=== PATIENT | male | born 1940 | race Caucasian/White ===

== ENCOUNTER 2016-08-26 08:50 | Emergency (ER) | payer OTHER ==
[~2016-08-26] VITALS: Ht 175.3 cm; Wt 101.7 kg
[~2016-08-26 08:50] MED LIST: ASPEC81 PO; AVP150 PO; CLOP1TAB15 PO; DIGO0.2518 PO; GLC500 PO; METO50TA16 PO; NMN10 PO; OXYC-57 PO; PANT40TA PO
[2016-08-26 09:00] VITALS: TEMP 36.4; Ht 175.3 cm; Wt 101.7 kg
[2016-08-26] MEDS ORDERED: CEFTRIAXONE SOD INJ 1 GM ADDVIAL IV STA (09:29)
[2016-08-26] MEDS ORDERED: SODIUM CHLORIDE 0.9% 1000ML 1,000 ML IV STA (09:29)
[2016-08-26] MEDS ORDERED: SODIUM CHLORIDE 0.9% 1000ML 250 ML IV STA (09:29)
[2016-08-26 10:07] LABS: BASO % 0.2 %; BASO ABS # 0.01 K/uL (0-0.2); COMPLETE YES; EOS % 2.4 %; HEMATOCRIT 35.4 % (42-52); LYMPH ABS # 0.94 K/uL (1.2-3.4); MEAN CELL VOLUME 88.5 fL (80-100); MEAN CORPUSCULAR HEMOGLOBIN 29.8 pg (25-34); MEAN CORPUSCULAR HGB CONC 33.6 g/dl (32-36); MEAN PLATELET VOLUME 11.7 fL (7.4-10.4); MONO % 17.8 %; NEUT % 60.6 %; PLATELET COUNT 154 K/uL (130-400); WHITE BLOOD COUNT 4.94 K/uL (4.8-10.8)
--- NOTE | 2016-08-26 10:10 | DIAGNOSTIC IMAGING REPORT ---
RIGHT TIBIA/FIBULA 2 VIEWS ROUTINE CLINICAL HISTORY: RIGHT [place] PAIN/SWELLING Right pain. Edema. COMPARISON: None. DISCUSSION: The bones and joint spaces appear intact. There is no evidence of fracture, dislocation or bony disease. Generalized soft tissue edema. IMPRESSION: Soft tissue edema. No acute bony abnormality. Electronically signed by: Kelvin Huitron M.D. 08/26/2016 10:09 AM Dictated Date/Time: 08/26/2016 10:08 AM
[2016-08-26] MEDS ORDERED: ASPI81TA28 PO (10:11)
[2016-08-26] MEDS ORDERED: NTRGSL/4 UT (10:13)
[2016-08-26] MEDS ORDERED: CRS/10 PO (10:14)
[2016-08-26] MEDS ORDERED: LOSA1TAB38 PO (10:15)
[2016-08-26] MEDS ORDERED: METO100T14 PO (10:16)
[2016-08-26] MEDS ORDERED: METF-384 PO (10:17)
[2016-08-26] MEDS ORDERED: ZNTT/150 PO (10:18)
[2016-08-26] MEDS ORDERED: CEPH500C2 PO (10:21)
[2016-08-26 10:23] LABS: BUN/CREATININE RATIO 17.3 (10-20); C-REACTIVE PROTEIN 6.51 mg/dl (0-0.29); CALCIUM 9.6 mg/dl (8.5-10.1); CREATININE 1.2 mg/dl (0.60-1.40); POTASSIUM 4.6 mmol/L (3.5-5.1)
[2016-08-26] MEDS ORDERED: SULF800T23 PO (10:23)
[2016-08-26 11:39] LABS: LYME DISEASE AB IGG NEG (NEG)
[2016-08-26 11:47] LABS: LYME DISEASE AB IGM POS (NEG)
[2016-08-26] MEDS ORDERED: DOXY100C2 PO (12:40)
[2016-08-26] MEDS ORDERED: CEPH500C PO (12:46)
--- NOTE | 2016-08-26 12:47 | EMERGENCY ROOM VISIT NOTE ---
History Report prepared by Addis: Eder Hanson Under the Supervision of: Dr. Yves Hughes M.D. First contact with patient: 09:15 Chief Complaint: INFECTION Stated Complaint: RED SPOT ON RT/PAIN ALSO Nursing Triage Summary: red spot on right leg went to [facility] told if got worse to see a dr . came here increased in size originally went for fever. 1.5 weeks ago had heart cath in [place]. History of Present Illness The patient is a 76 year old male who presents to the Emergency Room with complaints of a worsening right centeno infection beginning four days ago. He was seen in the [facility] three days ago and was started on antibiotics. He had a fever at the time, but states that he has not had any fevers since. The patient denies feeling sick. He notes that he had a cardiac catheterization 1.5 weeks ago. He is on Plavix and aspirin. The patient denies any joint aches or groin pain. 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 Source of History: patient, family Onset: Four days ago Position: leg (right centeno) Quality: other (infection) Timing: worsening Note: The patient denies any joint pain, or groin pain. Review of Systems See HPI for pertinent positives & negatives. A total of 10 systems reviewed and were otherwise negative. Past Medical & Surgical Medical Problems: (1) Borderline diabetes Old medical records were reviewed. Nurse's notes were reviewed and I agree with. Family History No pertinent family history stated. Social History Smoking Status: Never Smoker Occupation Status: retired Current/Historical Medications Scheduled Aspirin (Aspirin Ec), 81 MG PO DAILY Cephalexin Monohydrate (Keflex), 500 MG PO DAILY Cephalexin Monohydrate (Keflex), 500 MG PO QID Clopidogrel (Plavix), 75 MG PO QAM Doxycycline Hyclate (Vibramycin), 100 MG PO BID Losartan Potassium (Cozaar), 100 MG PO DAILY Metformin Hcl (Glucophage), 1,000 MG PO BID Metoprolol Tartrate (Lopressor) (Lopressor), 100 MG PO BID Nitroglycerin (Nitrostat), 0.4 MG UT PRN Ranitidine (Zantac), 150 MG PO BID Rosuvastatin Calcium (Crestor), 10 MG PO DAILY Sulfa/Trimethoprim (Bactrim Ds 800MG/160MG), 1 TAB PO BID Allergies Coded Allergies: No Known Allergies (Verified , 08/26/16) Physical Exam Vital Signs Date Time Temp Pulse Resp B/P (MAP) Pulse Ox O2 Delivery O2 Flow Rate FiO2 08/26/16 13:00 59 17 113/58 98 08/26/16 10:12 53 16 127/79 97 Room Air 08/26/16 09:00 36.4 55 18 139/78 98 Room Air Physical Exam General: Non ill appearing older male in no acute distress. HEENT: Normal cephalic atraumatic. Pupils are equal round and reactive to light. Extraocular movements are intact. Oropharynx is pink with moist mucous membranes. No swelling of the mouth lips or tongue. Neck: Supple with a midline trachea. No meningeal signs or stiffness, no JVD or bruits. No Stridor. Chest: Clear to auscultation bilaterally. No wheezes or rhonchi. No increased work of breathing. Heart: regular rate and rhythm. Abdomen: Soft nontender, nondistended without rebound guarding or rigidity. Extremities: No cyanosis clubbing or edema. No calf assymetry. Red circular rash on the right centeno. No blanching. There is some central clearing. No crepitus Normal motor and sensation. No groin tenderness or lymphadenopathy. No lymphangitis. Spine/Back. Non tender to palpation. No CVA tenderness Skin: Good turgor without rashes. Neurologic exam: Cranial nerves two through 12 are intact. Motor and sensation are intact and symmetrical throughout. Medical Decision & Procedures ER Provider Diagnostic Interpretation: X-ray results as stated below per interpretation by me and the radiologist: RIGHT TIBIA/FIBULA 2 VIEWS ROUTINE DISCUSSION: The bones and joint spaces appear intact. There is no evidence of fracture, dislocation or bony disease. Generalized soft tissue edema. IMPRESSION: Soft tissue edema. No acute bony abnormality. Electronically signed by: Kelvin Huitron M.D. 08/26/2016 10:09 AM Laboratory Results 08/26/16 09:50 Red Blood Count 4.00, Mean Corpuscular Volume 88.5, Mean Corpuscular Hemoglobin 29.8, Mean Corpuscular Hemoglobin Concent 33.6, Mean Platelet Volume 11.7, Neutrophils (%) (Auto) 60.6, Lymphocytes (%) (Auto) 19.0, Monocytes (%) (Auto) 17.8, Eosinophils (%) (Auto) 2.4, Basophils (%) (Auto) 0.2, Neutrophils # (Auto ) 2.99, Lymphocytes # (Auto) 0.94, Monocytes # (Auto) 0.88, Eosinophils # (Auto ) 0.12, Basophils # (Auto) 0.01 08/26/16 09:50 Test 08/26/16 09:50 08/26/16 09:53 White Blood Count 4.94 K/uL (4.8-10.8) Red Blood Count 4.00 M/uL (4.7-6.1) Hemoglobin 11.9 g/dL (14.0-18.0) Hematocrit 35.4 % (42-52) Mean Corpuscular Volume 88.5 fL (80-100) Mean Corpuscular Hemoglobin 29.8 pg (25-34) Mean Corpuscular Hemoglobin Concent 33.6 g/dl (32-36) Platelet Count 154 K/uL (130-400) Mean Platelet Volume 11.7 fL (7.4-10.4) Neutrophils (%) (Auto) 60.6 % Lymphocytes (%) (Auto) 19.0 % Monocytes (%) (Auto) 17.8 % Eosinophils (%) (Auto) 2.4 % Basophils (%) (Auto) 0.2 % Neutrophils # (Auto) 2.99 K/uL (1.4-6.5) Lymphocytes # (Auto) 0.94 K/uL (1.2-3.4) Monocytes # (Auto) 0.88 K/uL (0.11-0.59) Eosinophils # (Auto) 0.12 K/uL (0-0.5) Basophils # (Auto) 0.01 K/uL (0-0.2) RDW Standard Deviation 42.7 fL (36.4-46.3) RDW Coefficient of Variation 13.1 % (11.5-14.5) Immature Granulocyte % (Auto) 0.0 % Immature Granulocyte # (Auto) 0.00 K/uL (0.00-0.02) Erythrocyte Sedimentation Rate 39 mm/hr (0-14) Anion Gap 6.0 mmol/L (3-11) Est Creatinine Clear Calc Drug Dose 60.6 ml/min Estimated GFR () 67.2 Estimated GFR (Non- 58.0 BUN/Creatinine Ratio 17.3 (10-20) Calcium Level 9.6 mg/dl (8.5-10.1) C-Reactive Protein 6.51 mg/dl (0-0.29) Lyme Disease IgG Antibody NEG (NEG) Bedside Lactic Acid Venous 1.27 mmol/L (0.90-1.70) Laboratory studies as stated above per my review. Medications Administered Medications (Trade) Dose Ordered Sig/Malik Route Start Time Stop Time Status Last Admin Dose Admin Sodium Chloride 250 ml @ 999 mls/hr Q16M STAT IV 08/26/16 09:29 08/26/16 09:44 DC 08/26/16 09:29 999 MLS/HR Sodium Chloride 1,000 ml @ 100 mls/hr Q10H STAT IV 08/26/16 09:29 08/26/16 13:18 DC 08/26/16 09:29 100 MLS/HR Ceftriaxone Sodium (Rocephin Inj) 1 gm NOW STAT IV 08/26/16 09:29 08/26/16 09:32 DC 08/26/16 10:09 1 GM ED Course 0916: Past medical records reviewed. The patient was evaluated in room A12B, and a complete history and physical examination were performed. 0929: Ordered Rocephin Inj 1 gm IV, Sodium Chloride 1000 ml @ 100 mls/hr IV, Sodium Chloride 250 ml @ 999 mls/hr IV. 1205: I reassessed the patient. He feels better. 1240: Upon reevaluation, the patient is resting comfortably. I discussed the results and treatment plan with him. He verbalized agreement of the treatment plan. He states that he was told to take Keflex once a day, I told him that he should increase that to four times a day. The patient was discharged home. Medical Decision Differentials include, but are not limited to; cellulitis, lyme disease, trauma , inflammation, and electrolyte or metabolic abnormality. Blood Pressure Screening: Patient was found to have a slightly elevated blood pressure due to circumstances. I do not believe that the patient requires hypertension monitoring. Medication Reconciliation: I attest that I have personally reviewed the patient' s current medication list. This patient comes in with a red circular area centeno. He was placed on Keflex an Bactrim EKG has redness in the centeno he has no systemic complaints. He may have had a fever 2 days ago. He looks well on exam. He is out in the yard a lot and this could be related Lyme or erythema migrans potentially although it is somewhat atypical. His Lyme titer did come back positive for IgM. He was given Rocephin 1 g IV. His white count is not elevated his sedimentation rate and CRP are elevated. He has no significant electrolyte or metabolic abnormalities. he feels good and like to go home x-ray was unremarkable. I have reviewed his antibiotics as well as his medications. His Keflex is only 1 time a day. This is certainly suboptimal for cellulitis and I will have him use Keflex 500 mg 4 times a day. Additionally will have him stop the Bactrim and I'll have him use doxycycline to cover the Lyme disease. With this combination should cover both Lyme and cellulitis/skin infection. I do not think he needs to be admitted at this point however, I encouraged him follow-up with his doctor on Friday for recheck. Return if : increasing redness or warmth, fever or chills, worsening of symptoms, any new problems or concerns. He was happy with the plan and discharged home. Impression Primary Impression: Cellulitis Additional Impressions: Lyme disease Rash Scribe Attestation The scribe's documentation has been prepared under my direction and personally reviewed by me in its entirety. I confirm that the note above accurately reflects all work, treatment, procedures, and medical decision making performed by me. Departure Information Dispostion Home / Self-Care Prescriptions Cephalexin Monohydrate (Keflex) 500 Mg Cap 500 MG PO QID for 7 Days, #28 CAP Prov: Yves Hughes M.D. 08/26/16 Doxycycline Hyclate (VIBRAMYCIN) 100 Mg Cap 100 MG PO BID for 21 Days, #42 CAP Prov: Yves Hughes M.D. 08/26/16 Referrals Rafael Abarca M.D. (PCP) Forms HOME CARE DOCUMENTATION FORM, IMPORTANT VISIT INFORMATION, WORK / SCHOOL INSTRUCTIONS Patient Instructions My [facility] Additional Instructions Rest. Continue to use the cephalexin/Keflex Use doxycycline 100 mg twice a day for 21 daysantibiotic. This replaces the Bactrim/sulfamethoxazole Doxycycline can make you very sensitive the sunlight so ensure that she use extra some blocking coverup Return if: Fever or chills, worsening of symptoms, increasing redness or red streaks going up the leg, not feeling well, any new problems or concerns. Follow up with your doctor on Friday for recheck or return here in the meantime if not better weekend Problem Qualifiers
[2016-08-26 13:00] VITALS: BP 113/58; PULSE 59; O2SAT 98
[2016-08-29 08:33] LABS: 18KDIGG BAND NONREACTIVE (NONREACTIVE); 23KDIGG BAND REACTIVE (NONREACTIVE); 23KDIGM BAND REACTIVE (NONREACTIVE); 28KDIGG BAND NONREACTIVE (NONREACTIVE); 30KDIGG BAND REACTIVE (NONREACTIVE); 39KDIGG BAND NONREACTIVE (NONREACTIVE); 39KDIGM BAND NONREACTIVE (NONREACTIVE); 41KDIGG BAND NONREACTIVE (NONREACTIVE); 41KDIGM BAND REACTIVE (NONREACTIVE); 45KDIGG BAND NONREACTIVE (NONREACTIVE); 58KDIGG BAND NONREACTIVE (NONREACTIVE); 66KDIGG BAND REACTIVE (NONREACTIVE); 93KDIGG BAND NONREACTIVE (NONREACTIVE)
== END 2016-08-26 13:05 | disposition home or self-care (01) ==
LOC: C.EDB 08:52 → C.EDA 13:05
DX: L03.90 Cellulitis, unspecified (principal); A69.20 Lyme disease, unspecified; R21 Rash and other nonspecific skin eruption; Z79.82 Long term (current) use of aspirin; R73.03 Prediabetes

== ENCOUNTER 2020-05-10 08:11 | Inpatient (IN) ==
--- NOTE | 2020-04-21 14:19 | PAT Medication Instructions ---
Medication Instructions Date of Service April 21, 2020 Home Medications Multivitamin 50 Plus 2 tab PO QAM aspirin 81 mg PO QAM clopidogrel 75 mg PO QAM hydroxychloroquine [Plaquenil] 200 mg PO BID losartan 100 mg PO QAM metformin 1,000 mg PO BID metoprolol tartrate 100 mg PO BID nitroglycerin [Nitrostat] 0.4 mg SUBLINGUAL UD PRN omeprazole [Prilosec] 20 mg PO QAM rosuvastatin 10 mg PO HS Continue as directed nitroglycerin [Nitrostat] 0.4 mg SUBLINGUAL UD PRN (if needed) ASK your prescriber and surgeon aspirin 81 mg PO QAM clopidogrel 75 mg PO QAM STOP taking 2 weeks before surgery (or as soon as possible if surgery is within 2 weeks) Multivitamin 50 Plus 2 tab PO QAM DO NOT take the morning of surgery losartan 100 mg PO QAM metformin 1,000 mg PO BID Take morning of surgery With a small sip of water, OTHERWISE NOTHING TO EAT OR DRINK AFTER MIDNIGHT: metoprolol tartrate 100 mg PO BID omeprazole [Prilosec] 20 mg PO QAM Take evening before surgery metformin 1,000 mg PO BID metoprolol tartrate 100 mg PO BID rosuvastatin 10 mg PO HS Other Notes If you have any questions please call us at [phone] or [phone] or [phone] or [phone]
--- NOTE | 2020-04-25 15:25 | Anesthesiology Consultation ---
Date of Service April 25, 2020 Assessment & Plan (1) Encounter for pre-operative examination: - Per assessment on 04/25: Travel screen negative. Uses PPE. No known COVID-19 positive contacts or current COVID-19 related symptoms. Received first COVID vac cine 03/31 (second vaccine scheduled 04/28). Surgeon arranging preop COVID testing. Awaiting results. - S/P Right shoulder arthroscopy, RCR (03/25/18): LMA#5 easily placed + PNB at [facility] - ASA/plavix instructions: per surgeon/prescriber - Check BSG AM DOS Chart Review Chart Review: Acceptable Risk for Surgery (pending most recent cardiology office visit note) and Patient seen in Pre Admission Testing Teaching & Discussion Pre-Anesthesia Teaching/Discussion Notes: Instructed NPO after midnight before surgery,except medications with 15 cc of water. Medication instructions provided according to the PAT guidelines. History Surgery Operation Date: 05/10/20 12:25 Proposed Procedures p L4-L5 Decompression Fusion, Possible L5-S1, Spinal Cord Monitoring - Arash Burton DO Height/Weight Height: 5 ft 9 in Weight: 101.7 kg Allergies Allergy/AdvReac Type Severity Reaction Status Date / Time No Known Allergies Allergy Unknown Verified 04/18/20 10:21 Medications Home Medications Medication Instructions Recorded Confirmed Last Taken Multivitamin 50 Plus 2 tab PO QAM 03/13/18 04/18/20 03/24/18 08:30 aspirin 81 mg PO QAM 03/13/18 04/18/20 03/24/18 08:30 clopidogrel 75 mg PO QAM 03/13/18 04/18/20 03/22/18 08:30 hydroxychloroquine [Plaquenil] 200 mg PO BID 03/13/18 04/18/20 03/24/18 20:00 losartan 100 mg PO QAM 03/13/18 04/18/20 03/24/18 08:30 metformin 1,000 mg PO BID 03/13/18 04/18/20 03/23/18 18:00 metoprolol tartrate 100 mg PO BID 03/13/18 04/18/20 03/24/18 20:30 nitroglycerin [Nitrostat] 0.4 mg SUBLINGUAL UD PRN 04/18/20 04/18/20 Unknown omeprazole [Prilosec] 20 mg PO QAM 04/18/20 04/18/20 Unknown rosuvastatin 10 mg PO HS 04/18/20 04/18/20 Unknown Pepcid 1 tab PO DAILY 04/25/20 04/25/20 Unknown Past Medical History Medical History (Updated 04/25/20 @ 15:31 by Yolande Manzo) Anemia chronic, no hx blood transfusion CAD (coronary artery disease) stents x2 (~2009, ~2012), follows with Dr. Jeffries Chronic back pain Degenerative disc disease Diabetes mellitus, type 2 NIDDM ("borderline") GERD (gastroesophageal reflux disease) controlled [place] (hard of hearing) Left ear hearing aid Hyperlipidemia Hypertension Leg weakness Lyme disease 2017 (treated with 21 day course of doxycycline) Obesity Osteoarthritis Sleep apnea CPAP (s/p UPPP) Exercise / Class Metabolic Activity III < 4 Walking/Shop/Light housework Past Family History Family History Unknown Hypertension Other No family history of adverse response to anesthesia Past Surgical History Surgical History History of ankle surgery Left History of cardiac cath ~2009 (stent x1), ~2012 (stent x1), 2017 (no stents) History of cataract surgery R/L History of repair of rotator cuff Right shoulder arthroscopy, RCR: 03/25/18: LMA#5 easily placed + PNB at [facility] History of uvulopalatopharyngoplasty Hx of colonoscopy Hx of tonsillectomy S/P epidural steroid injection S/P laminectomy Past Anesthesia History No Hx of Anesthesia Complications and No Family Hx of Anesthesia Complications History of PONV No Hx of PONV and No Hx of Motion Sickness Social History Smoking Status: Never smoker Do You Dip or Chew Tobacco: No Hx Alcohol Use: No Hx Substance Use: No substance use type: does not use Review of Systems Patient denies chest pain, shortness of breath, dyspnea on exertion, joint pain, reflux, cough, wheezing, palpitations. Physical Exam Vital Signs VITALS BP 153/88 P 66 TEMP 98.4 SP02 98%RA RESP 16 PHYSICAL Full neck and c-spine range of motion. Full TMJ range of motion. TMD 3 finger breaths Mallampati Score 1 Dentition: intact Lungs: clear throughout to auscultation Cardiac: regular rate and rhythm, no murmurs noted Spine: normal Carotid arteries: negative bruit Extremities: no edema Testing Laboratory Results PT 10.3 Seconds (9.0-12.0) 04/25/20 15:40 INR 1.0 (0.9-1.1) 04/25/20 15:40 APTT 25.1 Seconds (21.0-31.0) 04/25/20 15:40 Urine Color Yellow 04/25/20 Unknown Urine Appearance Clear (Clear) 04/25/20 Unknown Urine pH 6.0 (4.5-7.5) 04/25/20 Unknown Ur Specific [place] 1.014 (1.000-1.030) 04/25/20 Unknown Urine Protein Negative (Negative) 04/25/20 Unknown Urine Glucose (UA) Negative (Negative) 04/25/20 Unknown Urine Ketones Negative (Negative) 04/25/20 Unknown Urine Nitrite Negative (Negative) 04/25/20 Unknown Ur Leukocyte Esterase Negative (Negative) 04/25/20 Unknown Urine WBC (Auto) 0 /hpf (0-5) 04/25/20 Unknown Urine RBC (Auto) 0-4 /hpf (0-4) 04/25/20 Unknown U Hyaline Cast (Auto) 0 /lpf (0-5) 04/25/20 Unknown U Epithel Cells (Auto) 0-5 /lpf (0-5) 04/25/20 Unknown Urine Bacteria (Auto) Negative (Negative) 04/25/20 Unknown Blood Type A Positive 04/25/20 15:40 Antibody Screen NEGATIVE 04/25/20 15:40 04/17/20 WBC 5.01 H/H 12.4/37.8 PLATELETS 198 SODIUM 141 POTASSIUM 4.4 CHLORIDE 109 CO2 26 BUN 16 CREATININE 0.82 GLUCOSE 160 TSH 3.060 FREE T4 0.98 HGBA1C 7.0% Electrocardiogram Date: 04/25/20 SR with PSVC's at 66bpm. Otherwise normal ECG. Chest X-Ray Date: 04/25/20 FINDINGS: Cardiac silhouette is mildly enlarged. Coronary arterial stent. Chronic right hemidiaphragmatic elevation. No pneumothorax, pleural effusion, airspace consolidation or overt pulmonary edema. Chronic blunting of the posterior costophrenic angles is likely secondary to scarring/atelectasis. Degenerative changes of the shoulders and spine. IMPRESSION: No acute process. Echocardiogram Date: 08/31/17 EF: 55-60% LV Function: normal Other Findings: + LVH (Mild) Dilatation of the left atrium. Sclerotic changes involving both the aortic and mitral valve leaflets, as well as mitral annular calcification. Mild to at most moderate mitral valvular insufficiency. Mild tricuspid, aortic, and pulmonic valvular insufficiency. Stress Test Date: 07/30/16 Type: nuclear (Lexiscan) Findings: + ischemia Resting EF: 58% Resting LV Function: normal Abnormal myocardial perfusion SPECT images with evidence for pharmacologically induced lateral ischemia. Normal LV wall motion and thickening. (Patient underwent cardiac cath on 08/16/16 and required no intervention) Cardiac Catheterization Date: 08/16/16 Intervention: + none Patent left circumflex stent with 20% in-stent restenosis and proximal edge 40% stenosis. LAD had a mid eccentric area of 50% stenosis after the takeoff of diagonal branch. Moderate nonobstructive coronary artery disease. Normal left ventricular systolic function.
[2020-04-25 16:26] LABS: Partial Thromboplastin Time 25.1 Seconds (21.0-31.0); Prothrombin Time 10.3 Seconds (9.0-12.0)
[2020-04-25 16:44] LABS: Appearance Urine Clear (Clear); Bacteria Urine Automated Negative (Negative); Bilirubin Urine Negative (Negative); Blood Urine Trace (Negative); Cast Urine Automated 0 /lpf (0-5); Color Urine Yellow; Epithelial Cell Urine Auto 0-5 /lpf (0-5); Glucose Urine UA Negative (Negative); Ketones Urine Negative (Negative); Leukocyte Esterase Urine Negative (Negative); Nitrite Urine Negative (Negative); Protein Urine Negative (Negative); RBC Urine Automated 0-4 /hpf (0-4); Specific Gravity Urine 1.014 (1.000-1.030); Urobilinogen Urine Negative (Negative); WBC Urine Automated 0 /hpf (0-5)
--- NOTE | 2020-04-25 17:06 | XRay Report ---
XR chest Pre-admission PA/Lat HISTORY: 80 years-old Male pat preoperative exam. No acute chest complaints COMPARISON: Chest radiograph 03/20/2018 TECHNIQUE: PA and lateral views of the chest FINDINGS: Cardiac silhouette is mildly enlarged. Coronary arterial stent. Chronic right hemidiaphragmatic eleva tion. No pneumothorax, pleural effusion, airspace consolidation or overt pulmonary edema. Chronic jovita nting of the posterior costophrenic angles is likely secondary to scarring/atelectasis. Degenerative changes of the shoulders and spine. IMPRESSION: No acute process. ACT 112: Negative or not required by law. The above report was generated using voice recognition software. It may contain grammatical, syntax o r spelling errors. Electronically signed by: Shashank Pak M.D. 04/25/2020 5:04 PM
--- NOTE | 2020-04-25 17:09 | Electrocardiogram Report ---
Test Reason : Blood Pressure : / mmHG Vent. Rate : 066 BPM Atrial Rate : 066 BPM P-R Int : 168 ms QRS Dur : 096 ms QT Int : 434 ms P-R-T Axes : 033 -24 036 degrees QTc Int : 454 ms Sinus rhythm with Premature supraventricular complexes Otherwise normal ECG When compared with ECG of 20-MAR-2018 10:47, Premature supraventricular complexes are now Present Confirmed by Branden Tesfaye ([id number]) on 04/25/2020 5:08:34 PM Referred By: Arash Burton Confirmed By:Branden Tesfaye
[~2020-05-10 08:11] MED LIST changes: +ACETAMINOPHEN 500 MG TAB PO SCH; -ASPEC81 PO; -AVP150 PO; -CLOP1TAB15 PO; +CeleBREX 200 MG CAP PO SCH; -DIGO0.2518 PO; +GABAPENTIN 300 MG CAP PO SCH; -GLC500 PO; +LR 15ML/HR IV SCH; -METO50TA16 PO; -NMN10 PO; -OXYC-57 PO; -PANT40TA PO; +ceFAZolin 2000MG 2,000 MG/15 ML SYR IV SCH
[2020-05-10] MEDS ORDERED: LIDOCAINE HCL 2% 2 ML VIAL/AMP(20MG/ML) INFIL ONE (08:26)
[2020-05-10] MEDS ORDERED: ONDANSETRON INJ 2 MG/ML 2 ML VIAL ONE (08:26)
[2020-05-10] MEDS ORDERED: PROPOFOL IV EMULSION 10 MG/ML 20 ML VIAL IV ONE (08:26)
[2020-05-10] MEDS ORDERED: DEXAMETHASONE SOD INJ 4 MG/ML VIAL ONE (08:26)
[2020-05-10] MEDS ORDERED: ROCURONIUM BROMIDE 10 MG/ML 5 ML VIAL IV ONE ×2 (08:26→13:26)
[2020-05-10] MEDS ORDERED: fentaNYL citrate 100 MCG/2 ML VIAL ONE ×2 (08:27)
--- NOTE | 2020-05-10 09:30 | History & Physical Bridge Note ---
Date of Service May 10, 2020 History & Physical Bridge Note I have examined the patient, reviewed the History & Physical and in the interval since the performance of the History & Physical I have noted the following changes of clinical significance: no changes noted
--- NOTE | 2020-05-10 09:31 | History & Physical Report ---
Date of Service May 10, 2020 Assessment & Plan (1) Neurogenic claudication due to lumbar spinal stenosis: Admission and Anticipated Discharge Date Admission Date: L4-L5 decompression and fusion, possible L5-S1 History of Present Illness Chief Complaint: Back and bilateral leg pain Primary Care Provider: Rafael Abarca This is a 80-year-old male well-known to me the presents marked decline in status complaining of back and bilateral leg pain and weakness. He is here for surgical invention. Allergies Allergy/AdvReac Type Severity Reaction Status Date / Time No Known Allergies Allergy Unknown Verified 05/10/20 08:53 Home Medications Medication Instructions Recorded Confirmed Type Multivitamin 50 Plus 2 tab PO QAM 03/13/18 05/10/20 History aspirin 81 mg PO QAM 03/13/18 05/10/20 History clopidogrel 75 mg PO QAM 03/13/18 05/10/20 History hydroxychloroquine [Plaquenil] 200 mg PO BID 03/13/18 05/10/20 History losartan 100 mg PO QAM 03/13/18 05/10/20 History metformin 1,000 mg PO BID 03/13/18 05/10/20 History metoprolol tartrate 100 mg PO BID 03/13/18 05/10/20 History nitroglycerin [Nitrostat] 0.4 mg SUBLINGUAL UD PRN 04/18/20 05/10/20 History omeprazole [Prilosec] 20 mg PO QAM 04/18/20 05/10/20 History rosuvastatin 10 mg PO HS 04/18/20 05/10/20 History Pepcid 1 tab PO DAILY 04/25/20 05/10/20 History Past Med/Surg History Medical History (Updated 05/10/20 @ 09:31 by Arash Burton DO) Anemia chronic, no hx blood transfusion CAD (coronary artery disease) stents x2 (~2009, ~2012), follows with Dr. Jeffries Chronic back pain Degenerative disc disease Diabetes mellitus, type 2 NIDDM ("borderline") GERD (gastroesophageal reflux disease) controlled [place] (hard of hearing) Left ear hearing aid Hyperlipidemia Hypertension Leg weakness Lyme disease 2017 (treated with 21 day course of doxycycline) Obesity Osteoarthritis Sleep apnea CPAP (s/p UPPP) Surgical History History of ankle surgery Left History of cardiac cath ~2009 (stent x1), ~2012 (stent x1), 2017 (no stents) History of cataract surgery R/L History of repair of rotator cuff Right shoulder arthroscopy, RCR: 03/25/18: LMA#5 easily placed + PNB at [facility] History of uvulopalatopharyngoplasty Hx of colonoscopy Hx of tonsillectomy S/P epidural steroid injection S/P laminectomy Family History Unknown Hypertension Other No family history of adverse response to anesthesia Social History Smoking Status: Never smoker Second Hand Exposure: Yes (hx); Do You Dip or Chew Tobacco: No; Tobacco Cessation Education Requested by Patient: No Hx Alcohol Use: No Hx Substance Use: No Preferred Language: [place]ar[place] Communication Ability: Effective 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
[2020-05-10] MEDS ORDERED: BUPIVACAINE/EPINEPHRINE 0.5% MPF 1:200,000 30 ML VIAL ONE (09:43)
[2020-05-10] MEDS ORDERED: BACITRACIN INJ 50,000 UNIT VIAL ONE (09:44)
[2020-05-10] MEDS ORDERED: HYDROmorphone INJ 2 MG/ML SYR/VIAL IV PRN (09:47)
[2020-05-10] MEDS ORDERED: ePHEDrine sulfate 50 MG/ML AMP IV PRN (09:47)
[2020-05-10] MEDS ORDERED: ONDANSETRON INJ 2 MG/ML 2 ML VIAL IV PRN ×2 (09:47→13:46)
[2020-05-10] MEDS ORDERED: ATROPINE SULFATE 0.1 MG/ML 10ML SYR IV PRN (09:47)
[2020-05-10] MEDS ORDERED: ePHEDrine sulfate 50 MG/ML SYR ONE (10:51)
[2020-05-10] MEDS ORDERED: GLYCOPYRROLATE 0.2 MG/ML VIAL ONE (11:51)
[2020-05-10] MEDS ORDERED: NEOSTIGMINE METHYLSULFATE 1 MG/ML 10ML VIAL ONE (11:51)
[2020-05-10] MEDS ORDERED: FLOSEAL HEMOSTATIC MATRIX 10ML TOP ONE (12:16)
--- NOTE | 2020-05-10 12:16 | Operative Report ---
Post Operative Report Pre & Post Diagnosis Operation Date: 05/10/20 10:05 Pre-Op Diagnosis: Spinal Stenosis, Lumbar Region with Neurogenic Claudication Post-Op Diagnosis: Spinal Stenosis, Lumbar Region with Neurogenic Claudication I identified the patient and participated in the time-out.: Yes Procedure Operation Date: 05/10/20 10:05 Actual Procedures #1 lumbar decompression with bilateral medial facetectomies and foraminotomies L3-4, L4-5 and L5-S1. #2 posterior spinal fusion L4-5 L5-S1. 3 placement posterior instrumentation L4-5 L5-S1. #4 interbody fusion L4-5 L5-S1. #5 placement peek cage 14 x 26 mm at L4-5 and L5-S1. #6 placement locally harvested morselized autograft in the posterior gutters. #7 placement infuse collagen sponge, master graft in the posterior lateral gutters and I factor in the interbody spaces. Surgeon Arash Burton, DO Vending Supervisor Siobhan King Estimated Blood Loss 300 Findings See Below The patient is 5 foot 9 inches tall weighing over 101 kg with a BMI in excess of 32. Patient's body habitus did contribute to significant technical difficulty cutting her deepest retractors and longus instruments in order to perform his procedure. This had at least 50% increase to the operative time. Specimens None Indications This is an 80-year-old male well-known to me the presents with above-mentioned diagnosis after failing course of nonoperative care is here for the above- mentioned procedure. Description of Procedure Patient was met with identified informed consent obtained. Patient patient was then taken to the operative suite underwent a patient placed in a prone position injectable total spine frame. All bony prominences well-padded eyes inspected to ensure no external pressure placed upon up at this point the lumbar spine was prepped and draped in normal sterile fashion. Sharp dissection with the assi stance of Bovie cautery performed down to and exposing the lamina and transverse processes of L4-L5 and sacral ala bilaterally. From a caudal cephalad fashion complete laminectomy of L5 L4 and partial laminectomy of L3 was performed including bilateral medial facetectomies and foraminotomies addressing severe spinal stenosis. Pedicle screws were then placed in L4-L5 and S1 levels bilaterally with assistance of fluoroscopy the purposes duke placed. By way of a transforaminal approach on the left complete discectomy of L5-S1 was performed endplates curetted to subcortical being bone and a 14 x 26 mm peek cage filled with I factor tapped in position. Then proceeded L4-L5 and again by way of a transforaminal portion left complete discectomy was performed endplates curetted to subcortical any bone and a 14 x 26 mm cage filled with I factor tapped in position. The rods were then locked into final position bilaterally. The transverse processes of L4-L5 and sacral ala burred to subcortical bleeding bone. Infuse collagen sponge master graft local autograft placed in the posterior gutters. 15 round GONZALES drain inserted. The incision was then closed with 1 Vicryl the fascia 2-0 Vicryl subcutaneously and 4 Monocryl for final skin closure. Steri-Strip sterile dressings placed. Patient waken taken to PACU stable condition. Please note spinal cord monitoring utilized throughout the pr ocedure no changes noted. Lastly Siobhan King was present at the entire surgery involved the patient positioning complex portions of the surgery and final skin closure. I attest to the content of the Intraoperative Record and any orders documented therein. Any exceptions are noted below.
--- NOTE | 2020-05-10 12:30 | Fluoroscopy Report ---
FL lumbar spine 2-3V CLINICAL HISTORY: L4-L5 DECOMPRESSION AND FUSION POSSIBLE L5-S1 COMPARISON STUDY: None. FLUOROSCOPY TIME: 25 seconds. FLUOROSCOPIC IMAGES: 2 FINDINGS: Fluoroscopy was provided during L4-S1 posterior decompression, multilevel discectomy and bi lateral pedicle screw fusion. The hardware is intact. IMPRESSION: Fluoroscopy provided for L4-S1 posterior decompression, discectomy and bilateral pedicle screw fusion. ACT 112: Negative or not required by law. Electronically signed by: Maxwell Finch M.D. 05/10/2020 12:29 PM
[2020-05-10] MEDS: fentaNYL citrate 100 MCG/2 ML VIAL IV PRN ×2 (12:53→13:00)
--- NOTE | 2020-05-10 13:31 | Anesthesiology Progress Note ---
Date of Service May 10, 2020 Anesthesia Post Procedure Vital Signs Vital Signs: Temp Pulse Pulse Resp BP BP Pulse Ox 05/10/20 13:20 36.3 C L 54 L 12 154/79 H 97 05/10/20 13:10 52 L 12 153/57 H 97 05/10/20 13:00 57 L 14 147/67 H 99 05/10/20 12:50 62 12 138/83 99 05/10/20 12:40 69 18 154/81 H 100 05/10/20 12:33 36.3 C L 71 13 152/74 H 100 05/10/20 08:34 36.6 C 66 20 160/90 H 97 Pain Intensity Medial Back: Pain Intensity: 5 Transfer of Care Handoff Completed per policy Notes Mental Status: alert / awake / arousable and participated in evaluation Patient Amnestic to Procedure: Yes Nausea / Vomiting: adequately controlled Pain: adequately controlled Airway Patency, RR, SpO2: stable & adequate BP & HR: stable & adequate Hydration State: stable & adequate Anesthetic Complications: no major complications apparent and Pt Satisfied with anesthetic care
[2020-05-10] MEDS ORDERED: ACETAMINOPHEN 500 MG TAB PO PRN (13:46)
[2020-05-10] MEDS ORDERED: HYDROmorphone INJ 1 MG/ML SYRINGE IV PRN (13:46)
[2020-05-10] MEDS ORDERED: ACETAMINOPHEN 1,000 MG/100 ML VIAL IV PRN (13:46)
[2020-05-10] MEDS ORDERED: LORazepam 0.5 MG TAB PO PRN (13:46)
[2020-05-10] MEDS ORDERED: hydrOXYzine HCl 25 MG TAB PO PRN (13:46)
[2020-05-10] MEDS ORDERED: DO NOT ADMINISTER FLU VACCINE PRN (13:46)
[2020-05-10] MEDS ORDERED: ONDANSETRON 4 MG OD TAB PO PRN (13:46)
[2020-05-10] MEDS ORDERED: bisacodyL 10 MG SUPP PR PRN (13:46)
[2020-05-10] MEDS ORDERED: FAMOTIDINE 20 MG TAB PO PRN (13:46)
[2020-05-10] MEDS ORDERED: SOD PHOSPHATE/SOD BIPHOSPHATE ENEMA 132 ML BTL PR PRN (13:46)
[2020-05-10] MEDS ORDERED: NALOXONE HCL 0.4 MG/1 ML VIAL/CARP IV PRN (13:46)
[2020-05-10] MEDS ORDERED: diphenhydrAMINE Capsule 25 MG CAP PO PRN (13:46)
[2020-05-10] MEDS ORDERED: HYDROmorphone INJ 0.5 MG/0.5 ML SYR IV PRN (13:46)
[2020-05-10] MEDS ORDERED: oxyCODONE HCL IR 5 MG TAB (IMMEDIATE RELEASE) PO PRN (13:46)
[2020-05-10] MEDS ORDERED: PROMETHAZINE HCL 12.5 MG in SODIUM CHLORIDE 0.9% 50 ML IV PRN (13:46)
[2020-05-10] MEDS ORDERED: MAGNESIUM HYDROXIDE SUSP 30 ML UDC PO PRN (13:46)
[2020-05-10] MEDS ORDERED: ALUMINUM/MAGNESIUM SUSP 30 ML UDC PO PRN (13:46)
[2020-05-10] MEDS ORDERED: DO NOT ADMINISTER PNEUMOCOCCAL VACCINE PRN (13:46)
[2020-05-10] MEDS ORDERED: NITROGLYCERIN SL 0.4 MG/TAB TAB SL PRN (13:46)
[2020-05-10] MEDS ORDERED: METOCLOPRAMIDE HCL INJ 5 MG/ML 2 ML VIAL IV PRN (13:46)
[2020-05-10] MEDS ORDERED: LORazepam 0.5 MG/1 ML VIAL IV PRN (13:46)
[2020-05-10] MEDS: SODIUM CHLORIDE 0.9% 1000ML 1,000 ML IV SCH ×2 (13:58→22:58)
[2020-05-10] MEDS: ceFAZolin 2000MG 2,000 MG/15 ML SYR IV SCH ×2 (14:24→22:58)
[2020-05-10] MEDS ORDERED: PHARMACY GLYCEMIC MGMT CONSULT PRN (14:38)
[2020-05-10] MEDS ORDERED: GLUCAGON FOR INJ 1 MG VIAL IM PRN (14:45)
[2020-05-10] MEDS ORDERED: DEXTROSE 50% 50 ML SYRINGE IV PRN (14:45)
[2020-05-10] MEDS ORDERED: CARBOHYDRATES FOR HYPOGLYCEMIA PO PRN (14:45)
[2020-05-10] MEDS ORDERED: GLUCOSE 10 TABS/TUBE PO PRN (14:45)
[2020-05-10] MEDS ORDERED: GLUCOSE 40% GEL 15 GM TUBE PO PRN (14:45)
--- NOTE | 2020-05-10 15:12 | Pharmacy Report ---
Pharmacy Glycemic Short Note 2 - Date of Service May 10, 2020 - Glycemic Short BSG Results (Last 24 hours): 05/10/20 05/10/20 05/10/20 08:32 12:37 14:02 POC Glucose 189 H 174 H 208 H OUTPATIENT ANTIDIABETIC REGIMEN: * metformin ASSESSMENT: * 80 year old now s/p spinal surgery, POD 0. Type 2 diabetic managed only on metformin at home * Postop BSG 208 mg/dL - appears steroids pulled intraop. Anticipated steroid induced hyperglycemia * Will order NPH 25 units x 1 now, and utilize stress of 3 dosing for novolog postop PLAN FOR INPATIENT GLYCEMIC CONTROL: * Hold outpatient oral diabetes medications * Basal insulin * NPH 25 units x 1 * Bolus insulin * NovoLog per scale ACHS or Q6hrs while NPO * Goal Range: Low 120 mg/dL - High 160 mg/dL * Correction Factor: 15 mg/dL/unit * Nutritional / Prandial insulin per carb ratio of 1 unit per 5 grams CHO consumed PLAN FOR DISCHARGE: * tbd
[2020-05-10] MEDS ORDERED: NovoLIN-N (NPH) PER UNIT CHARGE SQ ONE (15:15)
--- NOTE | 2020-05-10 16:14 | Consultation ---
Date of Consultation May 10, 2020 Assessment & Plan (1) Neurogenic claudication due to lumbar spinal stenosis: S/P L4-S1 lumbar decompression fusion by Dr. Burton, POD #0 EBL 300 mL; GONZALES drain 230 mL Patient tolerated procedure well Pain/wound management per orthopedic Activity/therapy/diet per orthopedic Encourage incentive spirometry Monitor H&H, patient with history of anemia requiring Venofer infusions Preop H&H 12.4 and 37.8 (2) Diabetes mellitus, type 2: Controlled, A1c 7.0 Hold Metformin Glycemic pharmacy on board, appreciate their assistance (3) CAD (coronary artery disease): denies CP/SOB echo 11/11/19 EF 55%, LAE, LVH continue medical management with ASA, Plavix, statin, losartan and metoprolol plavix currently on hold, recommend resuming as soon as medically able per orthopedics (4) Hypertension: bp controlled continue losartan and metoprolol with parameters (5) Sleep apnea: CPAP at HS (6) DVT prophylaxis: SCD/TEDS per primary Dispo:med/surg, per primary PCP: Tevin FULL CODE Pt was seen and examined in collaboration with Dr. Santiago, please see addendum Thank you for this consultation. We will follow the patient with you during their hospital stay. You can reach a member of the [facility]ist Team 16/09 via pager @ [phone]. Supervising Physician Co-Signing Physician Notes 05/10/2020 The patient was seen and examined in medical floor He is a status post lumbar fusion and decompression Complains to have some pain at the back with some numbness involving the toes on either side Denies any chest pain, palpitation, nausea and or vomiting. 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 Burton Reason for Consultation: Postop medical management Attending Physician: Arash Burton, DO History of Present Illness This is a 80-year-old male who has significant past medical history of CAD, T2DM, HTN, HLD, JYOTI on CPAP, anemia who presents for elective lumbar procedure by Dr. Burton. Patient underwent L4-S1 lumbar decompression fusion and tolerated the procedure well. He currently offers no postop complaints. He does have mild incisional tenderness but denies any radicular symptoms. He denies any fever, chills, sweats, lightheadedness, dizziness, chest pain, shortness of breath, nausea, vomiting, abdominal pain, changes bowel or urinary habits. He does have history of T2DM controlled with oral Metformin. His last A1c was 04/17/2020 at 7.0. He does have history of CAD and when she follows [facility] cardiology. He did receive stenting in the early . He is currently medically optimized. He does have history of JYOTI, but did not bring his own CPAP machine. He states his settings are 8. Allergies Allergy/AdvReac Type Severity Reaction Status Date / Time No Known Allergies Allergy Unknown Verified 05/10/20 08:53 Home Medications Medication Instructions Recorded Confirmed Type Multivitamin 50 Plus 2 tab PO QAM 03/13/18 05/10/20 History aspirin 81 mg PO QAM 03/13/18 05/10/20 History clopidogrel 75 mg PO QAM 03/13/18 05/10/20 History hydroxychloroquine [Plaquenil] 200 mg PO BID 03/13/18 05/10/20 History losartan 100 mg PO QAM 03/13/18 05/10/20 History metformin 1,000 mg PO BID 03/13/18 05/10/20 History metoprolol tartrate 100 mg PO BID 03/13/18 05/10/20 History nitroglycerin [Nitrostat] 0.4 mg SUBLINGUAL UD PRN 04/18/20 05/10/20 History omeprazole [Prilosec] 20 mg PO QAM 04/18/20 05/10/20 History rosuvastatin 10 mg PO HS 04/18/20 05/10/20 History Pepcid 1 tab PO DAILY 04/25/20 05/10/20 History Patient History Medical History (Updated 05/10/20 @ 16:21 by Kelsey Guadalupe PA-C) Anemia chronic, no hx blood transfusion CAD (coronary artery disease) stents x2 (~2009, ~2012), follows with Dr. Jeffries Chronic back pain Degenerative disc disease Diabetes mellitus, type 2 NIDDM ("borderline") GERD (gastroesophageal reflux disease) controlled [place]IE (hard of hearing) Left ear hearing aid Hyperlipidemia Hypertension Leg weakness Lyme disease 2018 (treated with 21 day course of doxycycline) Obesity Osteoarthritis Sleep apnea CPAP (s/p UPPP) Surgical History History of ankle surgery Left History of cardiac cath ~2009 (stent x1), ~2012 (stent x1), 2017 (no stents) History of cataract surgery R/L History of repair of rotator cuff Right shoulder arthroscopy, RCR: 03/25/18: LMA#5 easily placed + PNB at [facility] History of uvulopalatopharyngoplasty Hx of colonoscopy Hx of tonsillectomy S/P epidural steroid injection S/P laminectomy Family History Unknown Hypertension Other No family history of adverse response to anesthesia Social History Smoking Status: Never smoker Second Hand Exposure: Yes (hx); Do You Dip or Chew Tobacco: No; Tobacco Cessation Education Requested by Patient: No Hx Alcohol Use: No Hx Substance Use: No Preferred Language: Mauritian Communication Ability: Effective Exchange Administrator Required: No Beliefs That Will Affect Care: None Current Living Situation: Spouse Current Living Situation Comment: +1 dog Other Information That Helps Us Care for You: No Feels Safe at Home: Yes Safety Concerns: Feels Safe At This Time Assistive Devices: Glasses Review of Systems Review of Systems: All systems reviewed & are unremarkable except as noted in HPI & below Physical Exam Physical Exam: Constitutional: WD/WN, vitals as above, NAD, sitting up in bed, pleasant, conversing easily Head: Normocephalic, Atraumatic Eyes: PERRL, conjunctivae normal, anicteric sclerae ENMT: external ear and nose normal, oropharynx normal Neck: trachea midline, no thyromegaly normal visual inspection Respiratory: normal respiratory effort, lungs clear to auscultation, no wheeze, rales, rhonchi. Normal insp/exp effort, no accessory muscle use Cardiovascular: RRR, no murmur, no edema Vessels: no JVD or carotid bruit Chest: normal inspection of chest Abdomen: normal bowel sounds, soft, nontender, no hepatosplenomegaly Musculoskeletal: no cyanosis or clubbing, active range of motion x4, lumbar dressing CDI, GONZALES drain with serosanguineous drainage, NVI distally Skin: no rashes, warm and dry normal turgor Neurologic: PERRL, EOMI, accommodation nl, no face palsy, no dysarthria CN's II-XI intact bilaterally and moves all extremities Psychiatric: A+Ox3, euthymic affect Lymphatic: no cervical or axillary lymphadenopathy : Kelly catheter in place, draining yellow urine Results & Data ([facility]) Vital Signs (Past 12 Hours) Vital Signs Temp Pulse Pulse Resp BP BP Pulse Ox 05/10/20 14:43 36.5 C 71 16 154/83 H 96 05/10/20 14:00 36.5 C 63 12 147/84 H 97 05/10/20 13:40 55 L 14 159/92 H 95 05/10/20 13:20 36.3 C L 54 L 12 154/79 H 97 05/10/20 13:10 52 L 12 153/57 H 97 05/10/20 13:00 57 L 14 147/67 H 99 05/10/20 12:50 62 12 138/83 99 05/10/20 12:40 69 18 154/81 H 100 05/10/20 12:33 36.3 C L 71 13 152/74 H 100 05/10/20 08:34 36.6 C 66 20 160/90 H 97 Laboratory Results Preop lab studies on 04/17/2020 CBC: H&H 12.4 and 37.8, to BC 5.01, platelet 198 BMP: Sodium 141, K4.4, BUN 16, creatinine 0.82, glucose 160, A1c 7.0. Diagnostic Findings CXR: IMPRESSION: No acute process. Lumbar Spine Xray: IMPRESSION: Fluoroscopy provided for L4-S1 posterior decompression, discectomy and bilateral pedicle screw fusion. Medications Administered Acetaminophen (Acetaminophen 500 Mg Tab) 1,000 mg PO PREOP ALESHIA Stop: 05/10/20 18:00 Last Admin: 05/10/20 09:01 Dose: 1,000 mg Documented by: [id number] Celecoxib (Celebrex 200 Mg Cap) 200 mg PO PREOP ALESHIA Stop: 05/10/20 18:00 Last Admin: 05/10/20 09:01 Dose: 200 mg Documented by: [id number] Gabapentin (Gabapentin 300 Mg Cap) 300 mg PO PREOP ALESHIA Stop: 05/10/20 18:00 Last Admin: 05/10/20 09:00 Dose: 300 mg Documented by: [id number] Lactated Ringer's (Lr) 1,000 mls @ 15 mls/hr IV .Q24H ALESHIA Stop: 05/11/20 05:59 Last Infusion: 05/10/20 10:05 Dose: 0 mls/hr Documented by: [id number] Admin: 05/10/20 08:50 Dose: 15 mls/hr Documented by: [id number] Cefazolin Sodium (Ancef 2000mg) 2,000 mg in 15 mls @ 3.75 mls/min IV PREOP ALESHIA; Protocol Stop: 05/10/20 18:00 Last Admin: 05/10/20 10:05 Dose: 3.75 mls/min Documented by: [id number] Sodium Chloride (Nss 1000ml) 1,000 mls @ 100 mls/hr IV .Q10H ALESHIA Stop: 05/11/20 06:00 Last Admin: 05/10/20 13:58 Dose: 100 mls/hr Documented by: [id number] Cefazolin Sodium (Ancef 2000mg) 2,000 mg in 15 mls @ 3.75 mls/min IV Q8H ALESHIA; Protocol Stop: 05/10/20 22:03 Last Admin: 05/10/20 14:24 Dose: 3.75 mls/min Documented by: [id number] Insulin Aspart (Insulin Aspart 100 Units/Ml 3 Ml Pen) 0 units SC ACHS ALESHIA Stop: 06/09/20 16:29 Last Admin: 05/10/20 16:18 Dose: 12 units Documented by: [id number] Cosigned by: [id number] Discontinued Medications Bacitracin (Bacitracin Inj 50,000 Unit Vial) Confirm Administered Dose 50,000 units .ROUTE .STK-MED ONE Stop: 05/10/20 09:45 Last Admin: 05/10/20 10:56 Dose: 50,000 units Documented by: [id number] Bupivacaine HCl/Epinephrine Bitart (Bupivacaine/Epinephrine 0.5% Mpf 1:200,000 30 Ml Vial) Confirm Administered Dose 30 ml .ROUTE .STK-MED ONE Stop: 05/10/20 09:44 Last Admin: 05/10/20 10:56 Dose: 20 ml Documented by: [id number] Fentanyl Citrate (Fentanyl Citrate 100 Mcg/2 Ml Vial) 25 mcg IV Q5M PRN PRN Reason: PACU Use Only-Pain Stop: 05/10/20 17:47 Last Admin: 05/10/20 13:00 Dose: 25 mcg Documented by: [id number] Admin: 05/10/20 12:53 Dose: 25 mcg Documented by: [id number] Insulin Human NPH (Novolin-N (Nph) Per Unit Charge) 25 units SQ NOW ONE Stop: 05/10/20 15:16 Last Admin: 05/10/20 15:24 Dose: 25 units Documented by: [id number] Cosigned by: [id number] Miscellaneous ( Floseal Hemostatic Matrix 10ml) 12 ml TOP ONCE ONE Stop: 05/10/20 12:17 Last Admin: 05/10/20 15:45 Dose: Not Given Documented by: [id number] ECG Rate (beats per minute): 66 Rhythm: normal sinus Findings: + PVC
[2020-05-10] MEDS: INSULIN ASPART 100 UNITS/ML 3 ML PEN SC SCH ×3 (16:18→21:33)
[2020-05-10] MEDS: traMADol HCL 50 MG TABLET PO PRN (20:03)
[2020-05-10] MEDS: METOPROLOL TARTRATE 100 MG TAB PO SCH (22:13)
[2020-05-10] MEDS: DOCUSATE SODIUM/SENNA 50/8.6MG TAB PO SCH (22:13)
[2020-05-10] MEDS: ROSUVASTATIN CALCIUM 10 MG TAB PO SCH (22:13)
[2020-05-11] MEDS: INSULIN ASPART 100 UNITS/ML 3 ML PEN SC SCH ×6 (00:24→20:43)
[2020-05-11] MEDS: traMADol HCL 50 MG TABLET PO PRN ×3 (05:40→16:24)
[2020-05-11] MEDS: POLYETHYLENE (MIRALAX) 17 GM PACK PO SCH ×4 (05:41→19:14)
[2020-05-11 06:28] LABS: Eosinophils # (auto) 0.01 K/uL (0-0.5); Eosinophils % (auto) 0.1 %; Hematocrit (blood only) 31.5 % (42-52); Hemoglobin 10.6 g/dL (14.0-18.0); Immature Granulocytes # (auto) 0.03 K/uL (0.00-0.02); Immature Granulocytes % (auto) 0.3 %; Lymphocytes # (auto) 1.11 K/uL (1.2-3.4); Mean Corpuscular Hemoglobin 30.2 pg (25-34); Mean Corpuscular Hgb Conc 33.7 g/dL (32-36); Mean Corpuscular Volume 89.7 fL (80-100); Mean Platelet Volume 10.7 fL (7.4-10.4); Monocytes % (auto) 10.8 %; Neutrophils # (auto) 7.11 K/uL (1.4-6.5); Neutrophils % (auto) 76.8 %; Platelet Count 173 K/uL (130-400); RDW Coefficient of Variation 12.1 % (11.5-14.5); RDW Standard Deviation 39.5 fL (36.4-46.3); Red Blood Count 3.51 M/uL (4.7-6.1); White Blood Count 9.26 K/uL (4.8-10.8)
[2020-05-11 07:04] LABS: BUN Creatinine Ratio 18.2 (10-20); Calcium 8.3 mg/dl (8.5-10.1); Creatinine Clr Calc Pharmacy 83.4 ml/min; Est GFR (African American) 96.1; Est GFR (Non-African American) 82.9; Magnesium 1.9 mg/dl (1.8-2.4); Potassium 4.2 mmol/L (3.5-5.1)
[2020-05-11] MEDS: PANTOprazole 40 MG TAB PO SCH (08:15)
[2020-05-11] MEDS: MULTIVITAMIN TAB PO SCH (08:15)
[2020-05-11] MEDS: FAMOTIDINE 20 MG TAB PO SCH (08:16)
[2020-05-11] MEDS: METOPROLOL TARTRATE 100 MG TAB PO SCH ×2 (08:16→19:14)
[2020-05-11] MEDS: ASPIRIN 81 MG ECTAB PO SCH (08:16)
[2020-05-11] MEDS: LOSARTAN POTASSIUM 50 MG TAB PO SCH (08:16)
--- NOTE | 2020-05-11 09:20 | Hospitalist Progress Note ---
Date of Service May 11, 2020 Assessment & Plan (1) Neurogenic claudication due to lumbar spinal stenosis: S/P L4-S1 lumbar decompression fusion by Dr. Burton, POD #1 EBL 300 mL; GONZALES drain 495 mL to date Pain/wound management per orthopedic Activity/therapy/diet per orthopedic Encourage incentive spirometry Acute blood loss anemia Hemoglobin dropped to 10.6 from 12.4 prior to surgery Doubt any acute blood loss is ongoing We will monitor CBC (2) Diabetes mellitus, type 2: Controlled, A1c 7.0 Hold Metformin Glycemic pharmacy on board, appreciate their assistance (3) CAD (coronary artery disease): denies CP/SOB echo 11/11/19 EF 55%, LAE, LVH continue medical management with ASA, Plavix, statin, losartan and metoprolol plavix currently on hold, recommend resuming as soon as medically able per orthopedics (4) Hypertension: bp controlled continue losartan and metoprolol with parameters (5) Sleep apnea: CPAP at HS (6) DVT prophylaxis: SCD/TEDS per primary Dispo:med/surg, per primary PCP: Tevin FULL CODE Pt was seen and examined in collaboration with Dr. Santiago, please see addendum Thank you for this consultation. We will follow the patient with you during their hospital stay. You can reach a [facility] via pager @ [phone]. 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 Surgical site pain improving. No numbness or paresthesias in bilateral lower extremities. Tolerating diet without issue. Passing flatus, no bowel movement yet. Still with rhodes catheter in place. Denies any fever, chills, lightheadedness, headache, chest pain, shortness of breath, nausea, vomiting, abdominal pain, dysuria or diarrhea. Review of Systems Review of Systems: At least ten systems reviewed and negative except as noted in the HPI. Physical Exam Physical Exam: General Appearance: WD/WN, vitals as above, NAD, sitting up in bed, pleasant, conversing easily Head: normocephalic, atraumatic Eyes: normal inspection, PERRL, conjunctivae normal, anicteric sclerae ENT: external ear and nose normal, oropharynx normal Neck: normal visual inspection, trachea midline, no thyromegaly Respiratory: normal respiratory effort, lungs clear to auscultation, no wheeze, rales, rhonchi. No accessory muscle use Cardiovascular: regular rate, rhythm, no murmur, normal peripheral pulses, no BLE edema. Vessels: no JVD Chest: normal inspection of chest Abdomen/GI: normal bowel sounds, soft, nontender, no hepatosplenomegaly Extremities/Musculoskeletal: Lumbar surgical dressing c/d/i. GONZALES drain visualized. No cyanosis or clubbing, extremities motor strength 5/5 Neurologic: PERRL, EOMI, accommodation nl, no face palsy, no dysarthria, CN's II-XI intact bilaterally and moves all extremities Psychiatric: A+Ox3, euthymic affect Skin: no rashes, normal color, warm/dry Results & Data Results & Data ([facility]) Vital Signs (Past 12 Hours) Vital Signs Temp Pulse Pulse Pulse Pulse Resp BP 05/11/20 08:14 56 L 05/11/20 07:53 36.5 C 53 L 18 138/80 05/11/20 03:30 56 L 16 05/11/20 03:00 36.4 C L 53 L 18 136/85 05/10/20 23:45 36.7 C 79 20 123/82 05/10/20 23:44 68 14 05/10/20 22:12 88 129/80 Pulse Ox 05/11/20 08:14 05/11/20 07:53 95 05/11/20 03:30 96 05/11/20 03:00 95 05/10/20 23:45 95 05/10/20 23:44 94 05/10/20 22:12 Laboratory Results Short CBC 05/11/20 Range/Units 06:14 WBC 9.26 (4.8-10.8) K/uL Hgb 10.6 L (14.0-18.0) g/dL Hct 31.5 L (42-52) % Plt Count 173 (130-400) K/uL BMP 05/11/20 06:14 Sodium 142 Potassium 4.2 Chloride 109 H Carbon Dioxide 29 BUN 15 Creatinine 0.82 Glucose 137 H Calcium 8.3 L
--- NOTE | 2020-05-11 11:18 | Pharmacy Report ---
Pharmacy Glycemic Short Note 2 - Date of Service May 11, 2020 - Glycemic Short BSG Results (Last 24 hours): 05/10/20 05/10/20 05/10/20 12:37 14:02 15:59 Glucose POC Glucose 174 H 208 H 203 H 05/10/20 05/11/20 05/11/20 20:18 00:14 03:54 Glucose POC Glucose 238 H 212 H 159 H 05/11/20 05/11/20 06:14 08:21 Glucose 137 H POC Glucose 139 H OUTPATIENT ANTIDIABETIC REGIMEN: * metformin ASSESSMENT: 05/11 * Pt has received 47 units of insulin over the past 24hrs * 25 units of basal with NPH to cover dexamethasone 4mg iv given intraop * 22 units of bolus with NovoLog * BSGs [phone] mg/dl * No steroids ordered for today - should see an improvement in BSGs. No NPH needed based on baseline A1c without steroids ordered * Will loosen CF/CR since steroids dc. * Continue to titrate insulin based on BSG trends. 05/10 * 80 year old now s/p spinal surgery, POD 0. Type 2 diabetic managed only on metformin at home * Postop BSG 208 mg/dL - appears steroids pulled intraop. Anticipated steroid induced hyperglycemia * Will order NPH 25 units x 1 now, and utilize stress of 3 dosing for novolog postop PLAN FOR INPATIENT GLYCEMIC CONTROL: * Hold outpatient oral diabetes medications * Basal insulin * DC * Bolus insulin: loosen CF/CR * NovoLog per scale ACHS or Q6hrs while NPO * Goal Range: Low 110 mg/dL - High 140 mg/dL * Correction Factor: 20 mg/dL/unit * Nutritional / Prandial insulin per carb ratio of 1 unit per 6 grams CHO consumed PLAN FOR DISCHARGE: * tbd
--- NOTE | 2020-05-11 12:19 | Orthopedic Progress Note ---
Date of Service May 11, 2020 Assessment & Plan (1) Neurogenic claudication due to lumbar spinal stenosis: Admission and Anticipated Discharge Date Admission Date: May 10, 2020 This time we will continue physical therapy monitor his GONZALES operatively discharge home this weekend. Subjective Back pain controlled leg pain markedly improved. Physical Exam Physical Exam: Patient strength testing peers comfortable. Results & Data ([facility]) Vital Signs (Past 12 Hours) Vital Signs Temp Pulse Pulse Pulse Resp BP Pulse Ox 05/11/20 11:57 36.5 C 57 L 18 128/65 94 05/11/20 08:14 56 L 05/11/20 07:53 36.5 C 53 L 18 138/80 95 05/11/20 03:30 56 L 16 96 05/11/20 03:00 36.4 C L 53 L 18 136/85 95
[2020-05-11] MEDS: DOCUSATE SODIUM/SENNA 50/8.6MG TAB PO SCH (19:14)
[2020-05-11] MEDS: ROSUVASTATIN CALCIUM 10 MG TAB PO SCH (19:14)
[2020-05-12] MEDS: POLYETHYLENE (MIRALAX) 17 GM PACK PO SCH ×3 (05:27→18:31)
[2020-05-12 06:29] LABS: Basophils # (auto) 0.02 K/uL (0-0.2); Basophils % (auto) 0.2 %; Eosinophils # (auto) 0.05 K/uL (0-0.5); Eosinophils % (auto) 0.6 %; Hematocrit (blood only) 29.6 % (42-52); Hemoglobin 9.8 g/dL (14.0-18.0); Immature Granulocytes # (auto) 0.02 K/uL (0.00-0.02); Immature Granulocytes % (auto) 0.2 %; Lymphocytes # (auto) 1.45 K/uL (1.2-3.4); Mean Corpuscular Hemoglobin 30.2 pg (25-34); Mean Corpuscular Hgb Conc 33.1 g/dL (32-36); Mean Corpuscular Volume 91.1 fL (80-100); Mean Platelet Volume 10.8 fL (7.4-10.4); Monocytes # (auto) 1.48 K/uL (0.11-0.59); Monocytes % (auto) 18.4 %; Neutrophils # (auto) 5.02 K/uL (1.4-6.5); Neutrophils % (auto) 62.6 %; Platelet Count 162 K/uL (130-400); RDW Coefficient of Variation 12.5 % (11.5-14.5); RDW Standard Deviation 42.2 fL (36.4-46.3); Red Blood Count 3.25 M/uL (4.7-6.1); White Blood Count 8.04 K/uL (4.8-10.8)
[2020-05-12 07:07] LABS: BUN Creatinine Ratio 19.5 (10-20); Calcium 8.4 mg/dl (8.5-10.1); Creatinine Clr Calc Pharmacy 67.1 ml/min; Est GFR (African American) 79.5; Est GFR (Non-African American) 68.6
[2020-05-12] MEDS: INSULIN ASPART 100 UNITS/ML 3 ML PEN SC SCH ×4 (07:57→20:26)
[2020-05-12] MEDS: FAMOTIDINE 20 MG TAB PO SCH (08:22)
[2020-05-12] MEDS: dexAMETHasone 8 MG in SYRINGE 0 ML IV SCH (08:22)
[2020-05-12] MEDS: ASPIRIN 81 MG ECTAB PO SCH (08:22)
[2020-05-12] MEDS: LOSARTAN POTASSIUM 50 MG TAB PO SCH (08:22)
[2020-05-12] MEDS: PANTOprazole 40 MG TAB PO SCH (08:22)
[2020-05-12] MEDS: MULTIVITAMIN TAB PO SCH (08:22)
[2020-05-12] MEDS: METOPROLOL TARTRATE 100 MG TAB PO SCH ×2 (08:22→21:00)
[2020-05-12] MEDS ORDERED: NovoLIN-N (NPH) PER UNIT CHARGE SQ ONE (09:00)
--- NOTE | 2020-05-12 09:52 | Hospitalist Progress Note ---
Date of Service May 12, 2020 Assessment & Plan (1) Neurogenic claudication due to lumbar spinal stenosis: S/P L4-S1 lumbar decompression fusion by Dr. Burton, POD #2 EBL 300 mL; GONZALES drain 870 mL to date Pain/wound management per orthopedic Activity/therapy/diet per orthopedic Encourage incentive spirometry (2) Agitation: Transient agitation and confusion overnight with nursing attributed to narcotics Oxycodone and dilaudid held, resolution of symptoms and back to baseline A&Ox4, cooperative Schedule tylenol, continue PRN tramadol for pain control No fever or leukocytosis to indicate infection. Will repeat UA with recent rhodes removal (3) Acute blood loss anemia: Hemoglobin dropped to 10.6 following surgery (pre-op hgb 12.4) Hgb 9.8 today Asymptomatic Continue to monitor CBC (4) Diabetes mellitus, type 2: Controlled, A1c 7.0 Hold Metformin Glycemic pharmacy on board, appreciate their assistance (5) CAD (coronary artery disease): denies CP/SOB echo 11/11/19 EF 55%, LAE, LVH continue medical management with ASA, Plavix, statin, losartan and metoprolol plavix currently on hold, recommend resuming as soon as medically able per orthopedics (6) Hypertension: bp controlled continue losartan and metoprolol with parameters (7) Sleep apnea: CPAP at HS (8) DVT prophylaxis: SCD/TEDS per primary Dispo:med/surg, per primary PCP: Tevin FULL CODE Pt was seen and examined in collaboration with Dr. Santiago, please see addendum Thank you for this consultation. We will follow the patient with you during their hospital stay. You can reach a member of the [facility] Hospitalist Team 16/09 via pager @ [phone]. 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 He remains hemodynamically stable and her hemoglobin remains stable too. I am and check her CBC tomorrow morning to make sure his hemoglobin is maintained. Agree with the assessment and plan as outlined above By REBECCA Coello Dr Subjective Seen and examined in 317-1. Surgical site pain improved. No numbness or paresthesias in bilateral lower extremities. Ambulating and transferring independently with walker. Tolerating diet without issue. Passing flatus, no bowel movement yet. Urinating without issue since rhodes catheter removal. Did have transient episode of confusion and agitation overnight attributed to narcotics which have since been held. A&Ox4, no agitation. Denies any fever, chills, lightheadedness, headache, chest pain, shortness of breath, nausea, vomiting, abdominal pain, dysuria or diarrhea. Review of Systems Review of Systems: At least ten systems reviewed and negative except as noted in the HPI. Physical Exam Physical Exam: General Appearance: WD/WN, vitals as above, NAD, sitting up in bed, pleasant, conversing easily Head: normocephalic, atraumatic Eyes: normal inspection, PERRL, conjunctivae normal, anicteric sclerae ENT: external ear and nose normal, oropharynx normal Neck: normal visual inspection, trachea midline, no thyromegaly Respiratory: normal respiratory effort, lungs clear to auscultation, no wheeze, rales, rhonchi. No accessory muscle use Cardiovascular: regular rate, rhythm, no murmur, normal peripheral pulses, no BLE edema. Vessels: no JVD Chest: normal inspection of chest Abdomen/GI: normal bowel sounds, mildly distended but soft, nontender, no hepatosplenomegaly Extremities/Musculoskeletal: Lumbar surgical dressing c/d/i. GONZALES drain visualized. No cyanosis or clubbing, extremities motor strength 5/5 Neurologic: PERRL, EOMI, accommodation nl, no face palsy, no dysarthria, CN's II-XI intact bilaterally and moves all extremities Psychiatric: A+Ox3, euthymic affect Skin: no rashes, normal color, warm/dry Results & Data Results & Data ([facility]) Vital Signs (Past 12 Hours) Vital Signs Temp Pulse Pulse Resp BP Pulse Ox 05/12/20 08:12 92 05/12/20 08:10 37.1 C 84 16 113/55 L 89 L 05/11/20 22:05 37.2 C 85 16 113/66 92
--- NOTE | 2020-05-12 10:05 | Orthopedic Progress Note ---
Date of Service May 12, 2020 Assessment & Plan (1) Neurogenic claudication due to lumbar spinal stenosis: Admission and Anticipated Discharge Date Admission Date: May 10, 2020 This time continue physical therapy monitor GONZALES output. I have withheld his oxycodone. He was confused last night. He states he feels much better today. Hopefully discharge home tomorrow. Subjective Back pain controlled leg pain improved. Physical Exam Physical Exam: Patient is in the chair at the bedside. Is good strength testing. Results & Data ([facility]) Vital Signs (Past 12 Hours) Vital Signs Temp Pulse Pulse Resp BP Pulse Ox 05/12/20 08:12 92 05/12/20 08:10 37.1 C 84 16 113/55 L 89 L 05/11/20 22:05 37.2 C 85 16 113/66 92
[2020-05-12] MEDS: ACETAMINOPHEN 500 MG TAB PO SCH ×2 (11:07→18:31)
[2020-05-12 13:39] LABS: Appearance Urine Clear (Clear); Bacteria Urine Automated Negative (Negative); Bilirubin Urine Negative (Negative); Blood Urine Trace (Negative); Cast Urine Automated 0 /lpf (0-5); Color Urine Yellow; Epithelial Cell Urine Auto 0-5 /lpf (0-5); Glucose Urine UA 2+ (Negative); Ketones Urine Negative (Negative); Leukocyte Esterase Urine Negative (Negative); Nitrite Urine Negative (Negative); Protein Urine Negative (Negative); RBC Urine Automated 0-4 /hpf (0-4); Urobilinogen Urine Negative (Negative); WBC Urine Automated 0 /hpf (0-5); pH Urine 6.5 (4.5-7.5)
--- NOTE | 2020-05-12 15:08 | Pharmacy Report ---
Pharmacy Glycemic Short Note 2 - Date of Service May 12, 2020 - Glycemic Short BSG Results (Last 24 hours): 05/11/20 05/11/20 05/12/20 16:55 20:40 06:10 Glucose 159 H POC Glucose 144 H 172 H 05/12/20 05/12/20 06:43 12:18 Glucose POC Glucose 166 H 262 H OUTPATIENT ANTIDIABETIC REGIMEN: * metformin ASSESSMENT: 05/12: * Pt received total 28 units of insulin yesterday, all of which was bolus only since he was not ordered anymore steroids yesterday. * Fasting BSG was 159 mg/dl today. * Dexamethasone 8 mg IV daily was started this AM. So, patient was also ordered NPH insulin 25 units x 1 with the steroid. Dosing the same as two days ago. * Novolog parameters were also tightened this AM. Pre-lunch BSG was elevated today but should be trending down by dinner. 05/11 * Pt has received 47 units of insulin over the past 24hrs * 25 units of basal with NPH to cover dexamethasone 4mg iv given intraop * 22 units of bolus with NovoLog * BSGs [phone] mg/dl * No steroids ordered for today - should see an improvement in BSGs. No NPH needed based on baseline A1c without steroids ordered * Will loosen CF/CR since steroids dc. * Continue to titrate insulin based on BSG trends. 05/10 * 80 year old now s/p spinal surgery, POD 0. Type 2 diabetic managed only on metformin at home * Postop BSG 208 mg/dL - appears steroids pulled intraop. Anticipated steroid induced hyperglycemia * Will order NPH 25 units x 1 now, and utilize stress of 3 dosing for novolog postop PLAN FOR INPATIENT GLYCEMIC CONTROL: * Hold outpatient oral diabetes medications * Basal insulin: resumed * NPH 25 units x1 this AM with IV Dexamethasone. * Bolus insulin: tightened CF/CR * NovoLog per scale ACHS or Q6hrs while NPO * Goal Range: Low 110 mg/dL - High 140 mg/dL * Correction Factor: 15 mg/dL/unit * Nutritional / Prandial insulin per carb ratio of 1 unit per 5 grams CHO consumed PLAN FOR DISCHARGE: * HbA1c = 7.0% on 04/17/20 * Goal A1c is less than 8% for this patient based on age. * A1c is at goal with only oral Metformin. * Recommend continue oral Metformin at home dose on discharge as long as patient is not reporting hypoglycemia.
[2020-05-12] MEDS: ROSUVASTATIN CALCIUM 10 MG TAB PO SCH (21:00)
[2020-05-12] MEDS: DOCUSATE SODIUM/SENNA 50/8.6MG TAB PO SCH (21:03)
[2020-05-13] MEDS: POLYETHYLENE (MIRALAX) 17 GM PACK PO SCH ×2 (00:07→06:29)
[2020-05-13] MEDS: ACETAMINOPHEN 500 MG TAB PO SCH ×2 (03:16→10:20)
[2020-05-13 06:38] LABS: Hematocrit (blood only) 31.2 % (42-52); Hemoglobin 10.6 g/dL (14.0-18.0); Mean Corpuscular Hemoglobin 30.7 pg (25-34); Mean Corpuscular Volume 90.4 fL (80-100); Mean Platelet Volume 11.1 fL (7.4-10.4); Platelet Count 195 K/uL (130-400); RDW Coefficient of Variation 12.4 % (11.5-14.5); RDW Standard Deviation 41.1 fL (36.4-46.3); Red Blood Count 3.45 M/uL (4.7-6.1); White Blood Count 10.21 K/uL (4.8-10.8)
[2020-05-13 07:11] LABS: BUN Creatinine Ratio 20.3 (10-20); Calcium 9.7 mg/dl (8.5-10.1); Creatinine Clr Calc Pharmacy 60.6 ml/min; Est GFR (African American) 70.3; Est GFR (Non-African American) 60.6; Potassium 4.2 mmol/L (3.5-5.1)
--- NOTE | 2020-05-13 07:55 | Discharge Summary ---
Date of Service May 13, 2020 Admission HPI Per Admitting Provider This is a 80-year-old male well-known to me the presents marked decline in status complaining of back and bilateral leg pain and weakness. He is here for surgical invention. Admission Exam (Per Admitting) Constitutional WD/WN, vitals as above Eyes normal visual rutherford by confrontation ENMT external ear and nose normal, oropharynx normal Neck normal visual inspection Respiratory normal respiratory effort Cardiovascular Extremities: normal capillary refill Chest (Breasts) Chest: normal inspection of chest Gastrointestinal (Abdomen) Inspection/Auscultation: abdomen normal to inspection Musculoskeletal no cyanosis or clubbing, extremities motor strength 5/5 Extremities: extremities normal to inspection and strength 5/5 throughout Gait: normal gait Skin no rashes, warm and dry Neurologic normal touch/pain/proprioception and moves all extremities Psychiatric A+Ox3, euthymic affect Discharge Data Consultations 05/10/20 13:46 Consult Hospitalist Routine Procedures Performed Operation Date: 05/10/20 10:05 Actual Procedures p L4-S1 Decompression and Fusion, Spinal Cord Monitoring, Application of Bone Morphogenetic Protein & Bone Graft, Interbody Placement at L4-L5, L5-S1 (Not Ap plicable) - Arash Burton, DO Hospital Course (1) Neurogenic claudication due to lumbar spinal stenosis: Patient has had an uncomplicated hospital course. He is being discharged home on postoperative day 3. Pain is improved and well controlled. GONZALES drain output has diminished over the course of the past 3 days. He has made progress in physical therapy daily. He has had a bowel movement. Lab values have been stable. Discharge Instructions ACTIVITY RECOMMENDATIONS: SELF CARE INSTRUCTIONS AFTER THORACIC/LUMBAR FUSIONS 1. You may walk to your tolerance. It is good exercise for your legs and back. Expect some back and intermittent leg aches and pains. 2. You may perform "counter-top" level activities (make a sandwich, megan with a project, etc.). 3. No bending or lifting of more than 10 pounds or back twisting of any nature (roll like a log when turning in bed). 4. You may ride in a car for 20-30 minutes at a time. No driving until after your first visit with your doctor. 5. Frequent changes of position and restricting sitting to 30 minutes at a time will help limit the amount of back spasms and stiffness you may experience. 6. You may discontinue the use of ambulatory aids (cane, crutches, etc.) once your strength and confidence allow. 7. 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 Do not take a tub bath, sit in a hot tub or go into a swimming pool until after your first recheck in the office. SPECIAL CARE INSTRUCTIONS: VERY IMPORTANT TO READ AND REVIEW A. Your surgical incision has been closed with a cosmetic suture under the skin that will dissolve in about 6 weeks. In 14 days, you can use a pair of clean scissors and cut the suture that is left outside of the skin at the ends of your incision. 1. The small skin tapes can be removed 7 days after surgery if they have not fallen off by that point. 2. You may keep the wound open to air as much as possible to promote healing after post-op day number 5 unless told otherwise by your doctor. 3. If you think the wound looks like it is becoming infected (redness or worsening drainage) and/or you are experiencing fever, chill or worsening back pain and muscle spasms, contact the office so that we may evaluate you as soon as possible. B. Complications are uncommon, but please contact us if you have any signs or symptoms of: 1. wound infection (fever higher than 102.5 degrees F, redness, separation of wound, drainage, or increasing pain from the incision) 2. blood clots in legs (pain, swelling, redness and warmth in legs) 3. urinary tract infection (fever higher than 102.5 degrees F, burning upon urination or increased frequency of urination) 4. nerve problems (inability to walk on your toes or heels, numbness, loss of bowel or bladder control) 5. any other symptoms that concern you C. Please call the office at if you have any concerns or questions about your operation or recovery. D. No smoking! Smoking drastically decreases the chance of a solid fusion. E. Do not take any anti-inflammatory medications (Indocin, Advil, Motrin, Aspirin, Naprosyn, etc.) as these may inhibit the chance of a solid fusion. Tylenol is okay to take for pain. MANAGING PAIN AFTER SPINAL SURGERY 1. Narcotic medication is intended for short-term use and will be provided for surgical pain. Surgical pain usually lasts for a period of 4-6 weeks. Narcotic medication includes Percocet, Vicodin, Darvocet, Tylenol #3 or Lortab. 2. Longer-term pain is more appropriately treated with non-narcotic medication such as Tylenol ES. 3. Muscle spasm is not appropriately treated with narcotics. Muscle relaxers such as Soma, Flexeril or Skelaxin can be used along with Tylenol ES. 4. Remember that we all live with some "aches and pains". This is not unusual or uncommon after an injury or as we get older. a. Back pain is expected and may include muscle spasms for 4 to 6 weeks after surgery. The pain should gradually improve. If the pain worsens for no apparent reason, please contact the office. b. Intermittent leg pain may also be experienced and should not be concerned about unless it worsens for no apparent reason. If so, please contact the office. 5. We will provide appropriate medication within the normal guidelines of their prescribed use. We will also be very cautious and aware of potential abuse and extended duration of patients' medication needs. a. Pain medications are for your comfort and to assist with sleep and rest so that the tissue can heal. They are not provided in order to return to normal activity and should not be used through the day. To do so or worsening pain at night can result from ongoing tissue damage and development of tolerance to the prescribed medicine. 6. Please allow 2-3 days to process refills. Prescriptions will not be mailed but must be picked up at the office. FOLLOW UP VISIT: Keep your scheduled follow-up appointment. Any questions, please call the office at . Supervising Physician Co-Signing Physician Notes Dr. Arash Burton
[2020-05-13] MEDS: FAMOTIDINE 20 MG TAB PO SCH (08:27)
[2020-05-13] MEDS: PANTOprazole 40 MG TAB PO SCH (08:27)
[2020-05-13] MEDS: MULTIVITAMIN TAB PO SCH (08:27)
[2020-05-13] MEDS: ASPIRIN 81 MG ECTAB PO SCH (08:27)
[2020-05-13] MEDS: LOSARTAN POTASSIUM 50 MG TAB PO SCH (08:27)
[2020-05-13] MEDS: METOPROLOL TARTRATE 100 MG TAB PO SCH (08:27)
[2020-05-13] MEDS: dexAMETHasone 8 MG in SYRINGE 0 ML IV SCH (08:29)
[2020-05-13] MEDS: INSULIN ASPART 100 UNITS/ML 3 ML PEN SC SCH (08:34)
[2020-05-13] MEDS ORDERED: NovoLIN-N (NPH) PER UNIT CHARGE SQ ONE (09:00)
== END 2020-05-13 11:25 | disposition home or self-care (01) | DRG 454 ==
LOC: ASU 08:11 → PACUINP 12:37 → 3E 15:56

== ENCOUNTER 2021-06-11 07:40 | Inpatient (IN) ==
--- NOTE | 2021-05-24 14:13 | PAT Medication Instructions ---
Medication Instructions Date of Service May 24, 2021 Home Medications aspirin 81 mg tablet,delayed release 81 mg PO QAM hydroxychloroquine 200 mg tablet (Plaquenil) 200 mg PO BID losartan 100 mg tablet 100 mg PO QAM metformin 1,000 mg tablet 1,000 mg PO BID metoprolol tartrate 100 mg tablet 100 mg PO BID ovwtkjftbxzv-slgimlvt-aownhh tablet (Multivitamin 50 Plus) 2 tab PO QAM nitroglycerin 0.4 mg sublingual tablet (Nitrostat) 0.4 mg SUBLINGUAL UD PRN rosuvastatin 10 mg tablet 10 mg PO HS famotidine 20 mg tablet (Pepcid) 20 mg PO QAM PRN acetaminophen 500 mg tablet 1,000 mg PO Q6H PRN Continue as directed nitroglycerin 0.4 mg sublingual tablet (Nitrostat) 0.4 mg SUBLINGUAL UD PRN(if needed) ASK your prescriber and surgeon aspirin 81 mg tablet,delayed release 81 mg PO QAM hydroxychloroquine 200 mg tablet (Plaquenil) 200 mg PO BID DO NOT take the morning of surgery losartan 100 mg tablet 100 mg PO QAM metformin 1,000 mg tablet 1,000 mg PO BID [id number]-thpkglnb-uszlha tablet (Multivitamin 50 Plus) 2 tab PO QAM Take morning of surgery With a small sip of water, OTHERWISE NOTHING TO EAT OR DRINK AFTER MIDNIGHT: metoprolol tartrate 100 mg tablet 100 mg PO BID famotidine 20 mg tablet (Pepcid) 20 mg PO QAM PRN(if needed) acetaminophen 500 mg tablet 1,000 mg PO Q6H PRN(okay to take up to 4 hours prior to surgery if needed) Take evening before surgery metformin 1,000 mg tablet 1,000 mg PO BID metoprolol tartrate 100 mg tablet 100 mg PO BID rosuvastatin 10 mg tablet 10 mg PO HS acetaminophen 500 mg tablet 1,000 mg PO Q6H PRN(if needed) Other Notes If you have any questions please call us at [phone] or [phone] or [phone] or [phone]
--- NOTE | 2021-05-28 14:12 | Anesthesiology Consultation ---
Date of Service May 28, 2021 Assessment & Plan (1) Encounter for pre-operative examination: - check BSG am DOS. - will attempt to obtain copies of any more recent cardiac catheterization, echocardiogram or stress testing given abnormal 2017 stress test. - awaiting PCP pre-op evaluation, 06/04 per Rhea at surgeon's office. - cardiology pre-op letter 05/15/2021: "...intermediate cardiac risk...Plavix was discontinued..." - cardiology office visit 02/06/2021 Dr. Zuñiga: "...follow-up EP evaluation...CAD s/p stenting of the CX in 06/02/2012, AVNRT s/p ablation in 06/03/2012, hypertension and hyperlipidemia...no current symptoms...echocardiogram was performed on 11/10/2020 which revealed EF 55%, normal left ventricular wall motion, enlargement of the left atrium, left ventricular hypertrophy, very dense sclerotic changes involving aorta and mitral valve leaflets as well as mitral annual calcification, mild to moderate mitral valvular insufficiency, mild aortic insufficiency, mild pulmonic insufficiency, and mild tricuspid insufficiency...EKG...sinus rhythm with occasional supraventricular premature complexes...doing well clinically with no significant progression of cardiac symptomatology...CAD is stable with no anginal symptoms...wishes to stop clopidogrel which is reasonable since his PCI was in 2012..." - COVID screening: Per assessment on 05/28/2021: Travel screen negative, no known COVID-19 positive contacts or current COVID-19 related symptoms in past 2 weeks. Patient vaccinated. Surgeon arranging preop COVID testing, scheduled 06/07/2021. Awaiting results. Chart Review Chart Review: Pending: Refer to Additional Notes / Consult section and Patient seen in Pre Admission Testing Teaching & Discussion Pre-Anesthesia Teaching/Discussion Notes: Instructed NPO after midnight before surgery, except medications with 15 cc of water. Medication instructions provid ed according to the PAT guidelines. History Surgery Operation Date: 06/11/21 13:25 Proposed Procedures p Left Sacroiliac Joint Fusion - Arash Burton DO Height/Weight Height: 5 ft 9 in Weight: 95.3 kg Allergies Allergy/AdvReac Type Severity Reaction Status Date / Time tramadol AdvReac "Weird Verified 05/24/21 10:18 dreams" Medications Home Medications Medication Instructions Recorded Confirmed Last Taken aspirin 81 mg tablet,delayed 81 mg PO QAM 03/13/18 05/24/21 04/26/20 release hydroxychloroquine 200 mg tablet 200 mg PO BID 03/13/18 05/24/21 05/02/20 (Plaquenil) losartan 100 mg tablet 100 mg PO QAM 03/13/18 05/24/21 05/09/20 08:00 metformin 1,000 mg tablet 1,000 mg PO BID 03/13/18 05/24/21 05/09/20 20:00 metoprolol tartrate 100 mg tablet 100 mg PO BID 03/13/18 05/24/21 05/10/20 06:00 nqzovdmppjdp-ldrewukv-esnkdb 2 tab PO QAM 03/13/18 05/24/21 04/26/20 tablet (Multivitamin 50 Plus) nitroglycerin 0.4 mg sublingual 0.4 mg SUBLINGUAL UD PRN 04/18/20 05/24/21 Unknown tablet (Nitrostat) rosuvastatin 10 mg tablet 10 mg PO HS 04/18/20 05/24/21 05/09/20 20:00 famotidine 20 mg tablet (Pepcid) 20 mg PO QAM PRN 01/16/21 05/24/21 Unknown acetaminophen 500 mg tablet 1,000 mg PO Q6H PRN 05/24/21 05/24/21 Unknown Past Medical History Medical History (Updated 05/29/21 @ 10:16 by Jing Agarwal PA-C) Anemia Chronic, hx iron infusions in past, Hgb range 10-12 over past year Arrhythmia H/o afib and PSVT per 2019 cardio note CAD (coronary artery disease) stents x2 (2007, ~2012), follows with [facility] Chronic back pain LOWER BACK Degenerative disc disease Chronic back pain Diabetes mellitus, type 2 NIDDM GERD (gastroesophageal reflux disease) controlled, stable per pt [place] (hard of hearing) Left ear hearing aid Hx of Lyme disease 2017 Hyperlipidemia Hypertension 130s/70s Leg weakness BILAT Lupus Possible, following with rheumatology (Dr. Whitlock), reason for Plaquenil Myocardial infarction 2008 s/p angioplasty and Cx stenting per 2019 cardio note Obesity Osteoarthritis Sleep apnea CPAP (Non-compliant since UPPP- did not have formal re-testing) Patient denies h/o stroke, seizures, heart attack, heart failure, or blood clots. Exercise / Class Metabolic Activity III < 4 Walking/Shop/Light housework (denies CP or SOB) Past Family History Family History Unknown Hypertension Other No family history of adverse response to anesthesia Past Surgical History Surgical History Fusion of spine L4-L5 decompression fusion (05/10/20): Grade 2 view, MAC#3, ETT#7.5, atraumatic. No issues per anesthesia progress note. 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 No issues per anesthesia progress note. History of uvulopalatopharyngoplasty Hx of colonoscopy Hx of tonsillectomy S/P epidural steroid injection S/P laminectomy Past Anesthesia History No Hx of Anesthesia Complications and No Family Hx of Anesthesia Complications History of PONV No Hx of PONV and No Hx of Motion Sickness Social History Smoking Status: Never smoker Do You Dip or Chew Tobacco: No Hx Alcohol Use: No Hx Substance Use: No substance use type: does not use Review of Systems Patient denies chest pain, shortness of breath, dyspnea on exertion, snoring, witnessed apneas, fever, chills, cough, wheezing, or palpitations. Physical Exam Vital Signs Vitals BP 156/82 P 59 TEMP 98.4 SP02 97% on RA RESP 17 Physical Full cervical extension range of motion without pain Full TMJ range of motion TMD 3.5 finger breaths Mallampati Score 3 Dentition: intact, repaired chipped tooth right front upper; denies loose or missing, implants or bridges Lungs: normal respiratory effort. Clear throughout to auscultation, no adventitious breath sounds Cardiac: regular rate and rhythm, no murmurs noted Carotid arteries: negative bruit bilat Lab Results Anesthesia Preop Results Results Anesthesia Widget: WBC 6.14 K/uL (4.8-10.8) 05/28/21 Hgb 11.3 g/dL (14.0-18.0) L 05/28/21 Hct 35.1 % (42-52) L 05/28/21 Plt 215 K/uL (130-400) 05/28/21 Na 139 mmol/L (136-145) 05/28/21 K 4.5 mmol/L (3.5-5.1) 05/28/21 Cl 104 mmol/L (98-107) 05/28/21 CO2 27 mmol/L (21-32) 05/28/21 BUN 19 mg/dl (6-23) 05/28/21 Creat 0.75 mg/dl (0.6-1.4) 05/28/21 Glucose Level 93 mg/dl (70-99(Fasting)) 05/28/21 PT 10.7 Seconds (9.0-12.0) 05/28/21 PTT 27.3 Seconds (21.0-31.0) 05/28/21 INR 1.0 (0.9-1.1) 05/28/21 Urine Color Yellow 05/28/21 Urine Appearance Clear (Clear) 05/28/21 Urine pH 6.0 (4.5-7.5) 05/28/21 Urine Specific [place] 1.015 (1.000-1.030) 05/28/21 Urine Protein Negative (Negative) 05/28/21 Urine Glucose (UA) Negative (Negative) 05/28/21 Urine Ketones Negative (Negative) 05/28/21 Urine Blood Negative (Negative) 05/28/21 Urine Nitrite Negative (Negative) 05/28/21 Urine Bilirubin Negative (Negative) 05/28/21 Urine Urobilinogen Negative (Negative) 05/28/21 Urine Leukocyte Esterase Negative (Negative) 05/28/21 Blood Type A Positive 05/28/21 Antibody Screen NEGATIVE 05/28/21 Testing Electrocardiogram Date: 02/06/21 Sinus rhythm with occasional supraventricular premature complexes, rate 67 bpm Anteroseptal AL, probably old Chest X-Ray Date: 05/28/21 FINDINGS: No lines and tubes are seen. The cardiomediastinal silhouette is normal. The lungs are clear. No evidence of pleural effusion or pneumothorax. IMPRESSION: No acute chest disease. Echocardiogram Date: 11/11/19 EF 55% No wall motion abnormalities Minimal amount of pericardial fluid seen Very dense sclerotic changes involving mitral and aortic valve leaflets LVH Normal LV wall motion Enlargement of left atrium Mild to moderate mitral valvular insufficiency Mild aortic, pulmonic and tricuspid valvular insufficiency Stress Test Date: 07/30/16 Pharmacologic Abnormal: lateral ischemia EF 58%
--- NOTE | 2021-06-11 09:15 | History & Physical Bridge Note ---
Date of Service June 11, 2021 History & Physical Bridge Note I have examined the patient, reviewed the History & Physical and in the interval since the performance of the History & Physical I have noted the following changes of clinical significance: no changes noted
--- NOTE | 2021-06-11 09:16 | History & Physical Report ---
Date of Service June 11, 2021 Assessment & Plan (1) Sacroiliitis: Plan: Left sacroiliac joint fusion History of Present Illness Chief Complaint: Sacroiliitis Primary Care Provider: Rafael Abarca This is an 81-year-old male well-known to me the presents with chronic persistent sacroiliitis. Failing since course of nonoperative care is here for surgical invention. Allergies Allergy/AdvReac Type Severity Reaction Status Date / Time tramadol AdvReac "Weird Verified 06/11/21 08:48 dreams" Home Medications Medication Instructions Recorded Confirmed Type aspirin 81 mg tablet,delayed 81 mg PO QAM 03/13/18 06/11/21 History release hydroxychloroquine 200 mg tablet 200 mg PO BID 03/13/18 06/11/21 History (Plaquenil) losartan 100 mg tablet 100 mg PO QAM 03/13/18 06/11/21 History metformin 1,000 mg tablet 1,000 mg PO BID 03/13/18 06/11/21 History metoprolol tartrate 100 mg tablet 100 mg PO BID 03/13/18 06/11/21 History vdjiqgizniod-sjazpvad-cpujtn 2 tab PO QAM 03/13/18 06/11/21 History tablet (Multivitamin 50 Plus) nitroglycerin 0.4 mg sublingual 0.4 mg SUBLINGUAL UD PRN 04/18/20 05/24/21 History tablet (Nitrostat) rosuvastatin 10 mg tablet 10 mg PO HS 04/18/20 06/11/21 History famotidine 20 mg tablet (Pepcid) 20 mg PO QAM PRN 01/16/21 06/11/21 History acetaminophen 500 mg tablet 1,000 mg PO Q6H PRN 05/24/21 06/11/21 History Past Med/Surg History Medical History (Updated 06/11/21 @ 09:16 by Arash Burton DO) Anemia Chronic, hx iron infusions in past, Hgb range 10-12 over past year Aortic valve insufficiency mild per echo report, stenosis listed in PCP PMHx, however HPI states insufficiency; 2019 echo: dense sclerosis of aortic leaflets "mild aortic insufficiency, no valvular stenosis" Arrhythmia H/o afib and PSVT per 2020 cardio note CAD (coronary artery disease) stents x2 (2007, ~2012), follows with [facility] Chronic back pain LOWER BACK Degenerative disc disease Chronic back pain Diabetes mellitus, type 2 NIDDM GERD (gastroesophageal reflux disease) controlled, stable per pt [place] (hard of hearing) Left ear hearing aid Hx of Lyme disease 2018 Hyperlipidemia Hypertension 130s/70s Leg weakness BILAT Lupus Possible, following with rheumatology (Dr. Whitlock), reason for Plaquenil Myocardial infarction 2007 s/p angioplasty and Cx stenting per 2019 cardio note Obesity Osteoarthritis Sleep apnea CPAP (Non-compliant since UPPP- did not have formal re-testing) Surgical History Fusion of spine L4-L5 decompression fusion (05/10/20): Grade 2 view, MAC#3, ETT#7.5, atraumatic. No issues per anesthesia progress note. 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 No issues per anesthesia progress note. History of uvulopalatopharyngoplasty Hx of colonoscopy Hx of tonsillectomy S/P epidural steroid injection S/P laminectomy Family History Unknown Hypertension Other No family history of adverse response to anesthesia Social History (Updated 05/24/21 @ 10:39 by Karla Méndez RN) Smoking Status: Never smoker Second Hand Exposure: Yes (ON OCC); Do You Dip or Chew Tobacco: No; Hx Alcohol Use: No Hx Substance Use: No Preferred Language: B[place]ian Communication Ability: Effective Hearing Ability: Use of Hearing Aid Clothing Sales Assistant Required: No Beliefs That Will Affect Care: None marital status: Current Living Situation: Spouse current occupational status: retired Other Information That Helps Us Care for You: No Feels Safe at Home: Yes Safety Concerns: Feels Safe At This Time Assistive Devices: Cane, Glasses and Hearing Aid - Left Assistive Devices Comment: CANE PRN Physical Exam Physical Exam: Patient is alert and oriented Heart regular rhythm Lungs clear Results & Data ([facility]) Vital Signs (Past 12 Hours) Vital Signs Temp Pulse Resp BP Pulse Ox 06/11/21 08:54 36.8 C 67 20 156/81 H 96
[2021-06-11] MEDS ORDERED: ceFAZolin 330 MG/ML 1 GM VIAL ONE (09:43)
[2021-06-11] MEDS ORDERED: BUPIVACAINE 0.5 % 5 MG/1 ML MPF 30ML VIAL ONE (09:43)
[2021-06-11] MEDS ORDERED: EPINEPHrine INJ 1 MG/ML AMP ONE (09:43)
[2021-06-11] MEDS ORDERED: fentaNYL citrate 100 MCG/2 ML VIAL ONE (09:50)
[2021-06-11] MEDS ORDERED: ROCURONIUM BROMIDE 10 MG/ML 5 ML VIAL IV ONE (10:12)
[2021-06-11] MEDS ORDERED: PROPOFOL IV EMULSION 10 MG/ML 20 ML VIAL IV ONE (10:12)
[2021-06-11] MEDS ORDERED: LIDOCAINE 2% 2 ML VIAL/AMP(20MG/ML) INFIL ONE (10:12)
[2021-06-11] MEDS ORDERED: DEXAMETHASONE SOD INJ 4 MG/ML VIAL ONE (10:12)
[2021-06-11] MEDS ORDERED: PHENYLEPHRINE 100MCG/ML 5ML SYR ONE (10:31)
[2021-06-11] MEDS ORDERED: FLOSEAL HEMOSTATIC MATRIX 10ML TOP ONE (10:41)
[2021-06-11] MEDS ORDERED: NEOSTIGMINE METHYLSULFATE 1 MG/ML 10ML VIAL ONE (10:48)
[2021-06-11] MEDS ORDERED: GLYCOPYRROLATE 0.2 MG/ML VIAL ONE (10:48)
[2021-06-11] MEDS ORDERED: ONDANSETRON INJ 2 MG/ML 2 ML VIAL ONE (10:48)
--- NOTE | 2021-06-11 10:55 | Operative Report ---
Post Operative Report Pre & Post Diagnosis Operation Date: 06/11/21 10:05 Pre-Op Diagnosis: Sacroiliitis Post-Op Diagnosis: Sacroiliitis I identified the patient and participated in the time-out.: Yes Procedure Operation Date: 06/11/21 10:05 Actual Procedures #1 open left SI joint fusion. #2 placement of 25 mm Prolex autograft with I factor in the left SI joint. #3 placement of 2 globus DIALLO-coated cannulated screw across the left SI joint. Surgeon Arash Burton, Solutions Architect Gilbert Webb Estimated Blood Loss 10 Findings Consistent with Post-Op Diagnosis Specimens None Indications This is a 81-year-old male well-known to me the presents with above-mentioned diagnosis after failing course of nonoperative care is here for surgical intervention. Description of Procedure Patient was met with identified informed consent obtained. Patient was then taken to the operative suite underwent intubation placed in a prone position chest table chest padded bolsters. All bony prominences well-padded eyes inspected to ensure no external pressure placed upon the. This point the left upper buttock was prepped and draped normal sterile fashion. The assistance of fluoroscopy identified the posterior margins of the left SI joint. Sharp dissection formed down to and exposing the posterior capsule of the left SI joint. It was opened and a guidewire placed within the joint verifying position with x-ray. Then placed a dilator over the guidewire followed by working cannula. I then drilled and curetted out the left SI joint to subcortical bleeding bone and placed a 25 mm allograft filled with I factor directly within the joint. After this was tamped into position I placed a second incision along the left upper buttock along the posterior aspect of the left SI joint. Is approximate 3 cm in length. A guidewire was then inserted and with inlet outlet and lateral views a guidewire was placed along the proximal SI joint. Cannulas were then placed and I drilled across and dilated with a 10 mm drill followed by placement of a 50 mm DIALLO-coated slotted globus screw filled with I factor and locally harvested morselized autograft across the joint. Demonstrated excellent purchase and alignment. Using our stone derrickman and rigger guide a second guidewire was inserted and placed in a similar fashion verifying position and outlet and lateral views. Again cannulas were utilized as I drilled across the joint followed by a 40 mm DIALLO-coated slotted globus SI screw filled with locally harvested morselized autograft and I factor. It again demonstrated excellent purchase and alignment. The incisions were then copiously irrigated closed with subcutaneous Vicryl and 4 Monocryl for final skin closure. Steri-Strip sterile dressings placed. Patient waken taken PACU stable condition. Please note Gilbert Webb was present at the entire procedure and while the patient positioning complex portion of the surgery and fascial closure. I attest to the content of the Intraoperative Record and any orders documented therein. Any exceptions are noted below.
[2021-06-11] MEDS ORDERED: oxyCODONE HCL IR 5 MG TAB (IMMEDIATE RELEASE) PO PRN ×3 (10:56→15:48)
[2021-06-11] MEDS ORDERED: HYDROmorphone INJ 0.5 MG/0.5 ML SYR IV PRN ×3 (10:56→15:48)
--- NOTE | 2021-06-11 11:10 | Fluoroscopy Report ---
[place] sacrum CLINICAL HISTORY: LEFT SACROILLIAC FUSION TECHNIQUE: 3 views were obtained with the C-arm in the OR with the above procedure. Total fluoroscopy time was 24.8 seconds. Total skin dose was 75.1 mGy. Comparison: None available at the time of this dictation. FINDINGS/IMPRESSION: Intraoperative images were obtained of the left sacroiliac joint fusion Please correlate with intraoperative fluoroscopy and operative report. ACT 112: Negative or not required by law. Electronically signed by: Galen Mendoza M.D. 06/11/2021 11:08 AM
[2021-06-11] MEDS ORDERED: fentaNYL citrate 100 MCG/2 ML VIAL IV PRN (11:20)
[2021-06-11] MEDS ORDERED: ATROPINE SULFATE 0.1 MG/ML 10ML SYR IV PRN (11:20)
[2021-06-11] MEDS ORDERED: ONDANSETRON INJ 2 MG/ML 2 ML VIAL IV PRN ×2 (11:20→15:48)
[2021-06-11] MEDS ORDERED: PROMETHAZINE HCL 6.25 MG in SODIUM CHLORIDE 0.9% 50 ML IV PRN (11:20)
[2021-06-11] MEDS ORDERED: ePHEDrine sulfate 50 MG/ML AMP IV PRN (11:20)
--- NOTE | 2021-06-11 14:26 | Anesthesiology Progress Note ---
Date of Service June 11, 2021 Anesthesia Post Procedure Vital Signs Vital Signs: Temp Pulse Pulse Resp BP Pulse Ox 06/11/21 12:50 36.4 C L 69 20 191/95 H 94 06/11/21 12:21 36.4 C L 66 20 173/81 H 95 06/11/21 11:50 36.4 C L 74 22 148/68 H 96 06/11/21 11:40 36.2 C L 63 12 146/80 H 100 06/11/21 11:30 62 13 123/70 100 06/11/21 11:20 66 13 135/66 98 06/11/21 11:13 36.0 C L 70 14 129/71 97 06/11/21 08:54 36.8 C 67 20 156/81 H 96 Transfer of Care Handoff Completed per policy Notes Mental Status: alert / awake / arousable Patient Amnestic to Procedure: Yes Nausea / Vomiting: adequately controlled Pain: adequately controlled Airway Patency, RR, SpO2: stable & adequate BP & HR: stable & adequate Hydration State: stable & adequate Anesthetic Complications: no major complications apparent
[2021-06-11] MEDS ORDERED: MAGNESIUM HYDROXIDE SUSP 30 ML UDC PO PRN (15:48)
[2021-06-11] MEDS ORDERED: ONDANSETRON 4 MG OD TAB PO PRN (15:48)
[2021-06-11] MEDS ORDERED: bisacodyL 10 MG SUPP PR PRN (15:48)
[2021-06-11] MEDS ORDERED: diphenhydrAMINE Capsule 25 MG CAP PO PRN (15:48)
[2021-06-11] MEDS ORDERED: HYDROmorphone INJ 1 MG/ML SYRINGE IV PRN (15:48)
[2021-06-11] MEDS ORDERED: hydrOXYzine HCl 25 MG TAB PO PRN (15:48)
[2021-06-11] MEDS ORDERED: LORazepam 2 MG/1 ML VIAL IV PRN (15:48)
[2021-06-11] MEDS ORDERED: FAMOTIDINE 20 MG TAB PO PRN ×2 (15:48)
[2021-06-11] MEDS ORDERED: METOCLOPRAMIDE HCL INJ 5 MG/ML 2 ML VIAL IV PRN (15:48)
[2021-06-11] MEDS ORDERED: ACETAMINOPHEN 1,000 MG/100 ML VIAL IV PRN (15:48)
[2021-06-11] MEDS ORDERED: NITROGLYCERIN SL 0.4 MG/TAB TAB SL PRN (15:48)
[2021-06-11] MEDS ORDERED: ACETAMINOPHEN 500 MG TAB PO PRN (15:48)
[2021-06-11] MEDS ORDERED: NALOXONE HCL 0.4 MG/1 ML VIAL/CARP IV PRN (15:48)
[2021-06-11] MEDS ORDERED: ALUMINUM/MAGNESIUM SUSP 30 ML UDC PO PRN (15:48)
[2021-06-11] MEDS ORDERED: DO NOT ADMINISTER PNEUMOCOCCAL VACCINE PRN (15:48)
[2021-06-11] MEDS ORDERED: DO NOT ADMINISTER FLU VACCINE PRN (15:48)
[2021-06-11] MEDS ORDERED: LORazepam 0.5 MG TAB PO PRN (15:48)
[2021-06-11] MEDS ORDERED: SOD PHOSPHATE/SOD BIPHOSPHATE ENEMA 132 ML BTL PR PRN (15:48)
[2021-06-11] MEDS ORDERED: PROMETHAZINE HCL 12.5 MG in SODIUM CHLORIDE 0.9% 50 ML IV PRN (15:48)
[2021-06-11] MEDS: LACTATED RINGER'S 1,000 ML IV SCH (15:59)
[2021-06-11] MEDS ORDERED: LOSARTAN POTASSIUM 50 MG TAB PO STA (17:07)
[2021-06-11] MEDS: ceFAZolin 2000MG 2,000 MG/15 ML SYR IV SCH (17:32)
[2021-06-11] MEDS ORDERED: DOCUSATE SODIUM/SENNA 50/8.6MG TAB PO SCH (21:00)
[2021-06-11] MEDS ORDERED: ROSUVASTATIN CALCIUM 10 MG TAB PO SCH (21:00)
[2021-06-11] MEDS: HYDROXYCHLOROQUINE SULFATE 200 MG TAB PO SCH (22:00)
[2021-06-11] MEDS: METOPROLOL TARTRATE 100 MG TAB PO SCH (22:01)
[2021-06-12] MEDS: ceFAZolin 2000MG 2,000 MG/15 ML SYR IV SCH (01:35)
[2021-06-12] MEDS: LACTATED RINGER'S 1,000 ML IV SCH (05:16)
[2021-06-12] MEDS: POLYETHYLENE (MIRALAX) 17 GM PACK PO SCH ×2 (05:22→12:41)
[2021-06-12] MEDS: HYDROXYCHLOROQUINE SULFATE 200 MG TAB PO SCH (08:29)
[2021-06-12] MEDS: METOPROLOL TARTRATE 100 MG TAB PO SCH (08:29)
[2021-06-12] MEDS ORDERED: ASPIRIN 81 MG ECTAB PO SCH (09:00)
[2021-06-12] MEDS ORDERED: LOSARTAN POTASSIUM 50 MG TAB PO SCH (09:00)
[2021-06-12] MEDS ORDERED: CEROVITE ADV FORMULA TAB PO SCH (09:00)
--- NOTE | 2021-06-12 09:56 | Discharge Summary ---
Date of Service June 12, 2021 Admission HPI Per Admitting Provider This is an 81-year-old male well-known to me the presents with chronic persistent sacroiliitis. Failing since course of nonoperative care is here for surgical invention. Principal Diagnosis Sacroiliitis Discharge Data Allergies Allergy/AdvReac Type Severity Reaction Status Date / Time tramadol AdvReac "Weird Verified 06/11/21 08:48 dreams" Procedures Performed Operation Date: 06/11/21 10:05 Actual Procedures p Left Sacroiliac Joint Fusion(Left) - Arash Burton DO Ordered Studies 06/11/21 [place] sacrum Routine Hospital Course (1) Sacroiliitis: Patient underwent left SI joint fusion [place] well but was unable to return home secondary to recovery from anesthesia and some difficulty with early ambulation. The following day was up and ambulating with a walker pain was markedly well controlled. And subsequently discharged after physical therapy. Discharge orders instructions from the chart for further review. Total Time Total Time Spent Total Time Spent (In Minutes): 20 minutes Discharge Plan Discharge Items Patient Disposition: Home - Self-Care Reason For Visit: SI Joint Dysfunction Discharge Diagnosis: Left sacroiliitis Activity: Per Instructions section Lifting: No more than 10 pounds Bathing: May shower/bathe in 3 days Non-emergency contact: Primary Care Provider Call non-emergency contact if: you have any medication questions Follow-up/Referrals: Rafael Abarca [Primary Care Provider] - Diet: Regular Addtl Attending Provider Instructions: Patient is to use a walker for toe-touch weightbearing to the right lower extremity. He may shower postop day 2 or 3. To follow-up in office as scheduled in 2 weeks. Pending Studies at Discharge: No Stand-Alone Forms: Anesthesia/Sedation, Adult, [facility] Medications and DC Order Prescriptions: New oxycodone 5 mg tablet 5 mg PO Q6H PRN (Reason: pain, severe) Qty: 20 RF: 0 Continued metoprolol tartrate 100 mg Tablet 100 mg PO BID RF: 0 aspirin 81 mg Tablet,Delayed Release (Dr/Ec) 81 mg PO QAM RF: 0 metformin 1,000 mg Tablet 1,000 mg PO BID RF: 0 hydroxychloroquine [Plaquenil] 200 mg Tablet 200 mg PO BID RF: 0 losartan 100 mg Tablet 100 mg PO QAM RF: 0 Multivitamin 50 Plus Tablet 2 tab PO QAM RF: 0 nitroglycerin [Nitrostat] 0.4 mg Tablet, Sublingual 0.4 mg sublingual UD PRN (Reason: Chest Pain) RF: 0 rosuvastatin 10 mg Tablet 10 mg PO HS RF: 0 acetaminophen 500 mg Tablet 1,000 mg PO Q6H PRN (Reason: Pain) RF: 0 famotidine [Pepcid] 20 mg Tablet 20 mg PO QAM PRN (Reason: Indigestion) RF: 0 Discharge Orders: Discharge Order (Routine); Ordered 06/12/21 Ordered By: Arash Lance/Other Patient Handouts: DVT Post Op Prevention Admission Data Admit Date/Time: 06/11/21 13:55 Attending Provider: Arash Burton Admit Provider: Arash Burton Primary Care Provider: Rafael Abarca
== END 2021-06-12 14:08 | disposition home or self-care (01) | DRG 460 ==
LOC: ASU 07:40 → 3E 13:55